=== PATIENT | male | born 1975 | race Caucasian/White ===

== ENCOUNTER 2018-01-13 07:40 | Day surgery (SDC) | payer OTHER ==
[~2018-01-13 07:40] MED LIST: ACET325 PO; ASPI81CH PO; ATOR40TA PO; Allergy25 M1; BAYER CHEWABLE81 MG PO; CLOP75 PO; DIPH50 PO; Excedrin Extra1 EACH; METO25 PO; METO25ER PO; Multiple Vitam1 EAC1; NITR.4SL SL; Prinivil10 MG; ZOLP10 PO
[2018-01-13 08:28] LABS: BASOPHILS ABSOLUTE AUTO 0.24 K/mm3 (0.00-0.23); BASOPHILS PERCENT AUTO 2 % (0-2); EOSINOPHILS ABSOLUTE AUTO 0.09 K/mm3 (0.00-0.68); EOSINOPHILS PERCENT AUTO 1 % (0-6); Hematocrit 30.3 % (37.0-53.0); Hemoglobin 9.9 g/dL (13.5-17.5); IMMATURE GRAN ABSOLUTE AUTO 0.62 K/mm3 (0.00-0.10); IMMATURE GRAN PERCENT AUTO 6 % (0-1); LYMPHOCYTES ABSOLUTE AUTO 1.93 K/mm3 (0.84-5.20); LYMPHOCYTES PERCENT AUTO 19 % (21-46); MONOCYTES ABSOLUTE AUTO 1.14 K/mm3 (0.16-1.47); MONOCYTES PERCENT AUTO 11 % (4-13); Mean Corpuscular HGB 28.5 pg (26.0-34.0); Mean Corpuscular HGB Conc 32.7 g/dL (31.5-36.5); Mean Corpuscular Volume 87 fL (80-100); Mean Platelet Volume 9.1 fL (9.1-12.4); NEUTROPHILS ABSOLUTE AUTO 6.44 K/mm3 (1.96-9.15); NEUTROPHILS PERCENT AUTO 62 % (41-73); Platelet Count 334 K/mm3 (150-400); RDW Coefficient Variation 17.7 % (11.7-14.2); RDW Standard Deviation 48.6 fL (35.1-46.3); Red Blood Cell Count 3.47 M/mm3 (4.30-5.90); White Blood Cell Count 10.46 K/mm3 (4.00-11.30)
[2018-01-13 08:47] LABS: Alanine Aminotransfer (ALT/SGP 15 U/L (12-78); Albumin, Blood 3.1 g/dL (3.4-5.0); Albumin/Globulin Ratio 0.8 (0.8-1.8); Alk Phos 67 U/L (50-136); Anion Gap 8 mmol/L (6-16); Aspartate Aminotrans (AST/SGOT 14 U/L (12-37); Bilirubin, Total 0.3 mg/dL (0.1-1.0); Blood Urea Nitrogen 23 mg/dL (8-24); Bun/Creatinine Ratio 22.3 (12.0-20.0); CO2, Blood 27 mmol/L (21-32); Chloride, Blood 107 mmol/L (98-108); Creatinine, Blood 1.03 mg/dL (0.60-1.20); Glomerular Filtration Rate >60 (60-); Glucose, Blood 98 mg/dL (70-99); Phosphorus, Blood 3.8 mg/dL (2.5-4.9); Sodium, Blood 142 mmol/L (136-145); Total Protein, Blood 7.1 g/dL (6.4-8.2)
[2018-01-13 09:37] LABS: Lactate Dehydrogenase (Ld),Bld 269 U/L (100-240)
== END 2018-01-13 07:55 | disposition home or self-care (01) ==
LOC: ATC 07:40
PROVIDERS: Internal Medicine Hematology & Oncology
DX: C83.18 Mantle cell lymphoma, lymph nodes of multiple sites (principal); D70.1 Agranulocytosis secondary to cancer chemotherapy
CPT/HCPCS: 36592; 80053; 83615; 84100; 85025

== ENCOUNTER 2018-01-16 00:23 | Day surgery (SDC) | payer OTHER ==
[2018-01-16 12:14] LABS: BASOPHILS ABSOLUTE AUTO 0.17 K/mm3 (0.00-0.23); BASOPHILS PERCENT AUTO 1 % (0-2); EOSINOPHILS ABSOLUTE AUTO 0.14 K/mm3 (0.00-0.68); EOSINOPHILS PERCENT AUTO 0 % (0-6); Hematocrit 30.2 % (37.0-53.0); Hemoglobin 9.8 g/dL (13.5-17.5); Mean Corpuscular HGB 27.9 pg (26.0-34.0); Mean Corpuscular HGB Conc 32.5 g/dL (31.5-36.5); Mean Corpuscular Volume 86 fL (80-100); Mean Platelet Volume 8.5 fL (9.1-12.4); Platelet Count 262 K/mm3 (150-400); RDW Coefficient Variation 18.6 % (11.7-14.2); RDW Standard Deviation 55.1 fL (35.1-46.3); Red Blood Cell Count 3.51 M/mm3 (4.30-5.90); White Blood Cell Count 33.11 K/mm3 (4.00-11.30)
[2018-01-16 12:19] LABS: IMMATURE GRAN ABSOLUTE AUTO 0.37 K/mm3 (0.00-0.10); IMMATURE GRAN PERCENT AUTO 1 % (0-1); LYMPHOCYTES ABSOLUTE AUTO 1.04 K/mm3 (0.84-5.20); LYMPHOCYTES PERCENT AUTO 3 % (21-46); MONOCYTES ABSOLUTE AUTO 0.53 K/mm3 (0.16-1.47); MONOCYTES PERCENT AUTO 2 % (4-13); NEUTROPHILS ABSOLUTE AUTO 30.86 K/mm3 (1.96-9.15); NEUTROPHILS PERCENT AUTO 93 % (41-73)
[2018-01-16 12:37] LABS: Alanine Aminotransfer (ALT/SGP 12 U/L (12-78); Albumin/Globulin Ratio 0.8 (0.8-1.8); Alk Phos 79 U/L (50-136); Anion Gap 5 mmol/L (6-16); Aspartate Aminotrans (AST/SGOT 9 U/L (12-37); BASOPHILS PERCENT MAN 0 % (0-2); Bilirubin, Total 0.3 mg/dL (0.1-1.0); Blood Urea Nitrogen 17 mg/dL (8-24); Bun/Creatinine Ratio 20.3 (12.0-20.0); CO2, Blood 29 mmol/L (21-32); Calcium, Blood 8.2 mg/dL (8.5-10.1); Chloride, Blood 106 mmol/L (98-108); Creatinine, Blood 0.84 mg/dL (0.60-1.20); EOSINOPHILS PERCENT MAN 0 % (0-6); Globulin, Blood 3.7 g/dL (2.2-4.0); Glomerular Filtration Rate >60 (60-); Glucose, Blood 93 mg/dL (70-99); LYMPHOCYTES ABSOLUTE MAN 0.33 K/mm3 (0.84-5.20); LYMPHOCYTES PERCENT MAN 1 % (21-46); MONOCYTES ABSOLUTE MAN 0.33 K/mm3 (0.16-1.47); MONOCYTES PERCENT MAN 1 % (4-13); Magnesium, Blood 2.4 mg/dL (1.6-2.4); NEUTROPHILS ABSOLUTE MAN 32.44 K/mm3 (1.96-9.15); Phosphorus, Blood 3.5 mg/dL (2.5-4.9); Potassium, Blood 4.2 mmol/L (3.5-5.5); SEG NEUTROPHILS PERCENT MAN 98 % (41-73); Sodium, Blood 140 mmol/L (136-145); TOTAL CELLS COUNTED 100; Total Protein, Blood 6.7 g/dL (6.4-8.2); Uric Acid, Blood 3.9 mg/dL (3.5-7.2)
[2018-01-16 12:51] LABS: Lactate Dehydrogenase (Ld),Bld 186 U/L (100-240)
== END 2018-01-16 11:48 | disposition home or self-care (01) ==
LOC: ATC 00:23
PROVIDERS: Internal Medicine Hematology & Oncology
DX: C83.18 Mantle cell lymphoma, lymph nodes of multiple sites (principal); Z45.2 Encounter for adjustment and management of vascular access device
CPT/HCPCS: 36592; 80053; 83615; 83735; 84100; 84550; 85025

== ENCOUNTER 2018-03-03 00:45 | Day surgery (SDC) | payer OTHER ==
[2018-03-03 08:39] LABS: BASOPHILS ABSOLUTE AUTO 0.07 K/mm3 (0.00-0.23); BASOPHILS PERCENT AUTO 1 % (0-2); EOSINOPHILS ABSOLUTE AUTO 0.82 K/mm3 (0.00-0.68); EOSINOPHILS PERCENT AUTO 11 % (0-6); Hematocrit 28.4 % (37.0-53.0); Hemoglobin 9.3 g/dL (13.5-17.5); IMMATURE GRAN PERCENT AUTO 7 % (0-1); LYMPHOCYTES PERCENT AUTO 22 % (21-46); MONOCYTES ABSOLUTE AUTO 1.21 K/mm3 (0.16-1.47); MONOCYTES PERCENT AUTO 17 % (4-13); Mean Corpuscular HGB 30.3 pg (26.0-34.0); Mean Corpuscular HGB Conc 32.7 g/dL (31.5-36.5); Mean Corpuscular Volume 93 fL (80-100); Mean Platelet Volume 9.3 fL (9.1-12.4); NEUTROPHILS PERCENT AUTO 42 % (41-73); NRBC ABSOLUTE 0.05 K/mm3 (0.00-0.02); NRBC Auto 0.7 /100 WBC (0.0-0.2); Platelet Count 244 K/mm3 (150-400); RDW Coefficient Variation 19.7 % (11.7-14.2); RDW Standard Deviation 57.1 fL (35.1-46.3); Red Blood Cell Count 3.07 M/mm3 (4.30-5.90)
[2018-03-03 09:00] LABS: Alanine Aminotransfer (ALT/SGP 17 U/L (12-78); Albumin, Blood 3.4 g/dL (3.4-5.0); Albumin/Globulin Ratio 1.1 (0.8-1.8); Alk Phos 85 U/L (50-136); Anion Gap 8 mmol/L (6-16); Aspartate Aminotrans (AST/SGOT 15 U/L (12-37); Bilirubin, Total 0.2 mg/dL (0.1-1.0); Blood Urea Nitrogen 17 mg/dL (8-24); Bun/Creatinine Ratio 18.8 (12.0-20.0); CO2, Blood 30 mmol/L (21-32); Calcium, Blood 8.2 mg/dL (8.5-10.1); Chloride, Blood 104 mmol/L (98-108); Glomerular Filtration Rate >60 (60-); Glucose, Blood 147 mg/dL (70-99); Magnesium, Blood 2.4 mg/dL (1.6-2.4); Sodium, Blood 142 mmol/L (136-145); Total Protein, Blood 6.4 g/dL (6.4-8.2)
== END 2018-03-03 08:10 | disposition home or self-care (01) ==
LOC: ATC 00:45
PROVIDERS: Internal Medicine Hematology & Oncology
DX: C83.18 Mantle cell lymphoma, lymph nodes of multiple sites (principal); D69.59 Other secondary thrombocytopenia; I10 Essential (primary) hypertension
CPT/HCPCS: 36592; 80053; 83615; 83735; 84100; 84550; 85025

== ENCOUNTER 2018-03-06 07:33 | Day surgery (SDC) | payer OTHER ==
[2018-03-06 15:13] LABS: BASOPHILS ABSOLUTE AUTO 0.09 K/mm3 (0.00-0.23); BASOPHILS PERCENT AUTO 0 % (0-2); EOSINOPHILS ABSOLUTE AUTO 0.03 K/mm3 (0.00-0.68); EOSINOPHILS PERCENT AUTO 0 % (0-6); Hemoglobin 9.2 g/dL (13.5-17.5); IMMATURE GRAN ABSOLUTE AUTO 0.39 K/mm3 (0.00-0.10); IMMATURE GRAN PERCENT AUTO 1 % (0-1); LYMPHOCYTES ABSOLUTE AUTO 1.04 K/mm3 (0.84-5.20); LYMPHOCYTES PERCENT AUTO 3 % (21-46); MONOCYTES ABSOLUTE AUTO 0.78 K/mm3 (0.16-1.47); MONOCYTES PERCENT AUTO 2 % (4-13); Mean Corpuscular HGB 31.6 pg (26.0-34.0); Mean Corpuscular HGB Conc 32.9 g/dL (31.5-36.5); Mean Platelet Volume 8.3 fL (9.1-12.4); NEUTROPHILS ABSOLUTE AUTO 30.82 K/mm3 (1.96-9.15); NEUTROPHILS PERCENT AUTO 93 % (41-73); Platelet Count 326 K/mm3 (150-400); RDW Coefficient Variation 21.4 % (11.7-14.2); RDW Standard Deviation 69.5 fL (35.1-46.3); Red Blood Cell Count 2.91 M/mm3 (4.30-5.90); White Blood Cell Count 33.15 K/mm3 (4.00-11.30)
[2018-03-06 15:21] LABS: Mean Corpuscular Volume 96 fL (80-100)
[2018-03-06 15:42] LABS: Alanine Aminotransfer (ALT/SGP 18 U/L (12-78); Albumin, Blood 3.1 g/dL (3.4-5.0); Albumin/Globulin Ratio 1.1 (0.8-1.8); Alk Phos 70 U/L (50-136); Anion Gap 5 mmol/L (6-16); Aspartate Aminotrans (AST/SGOT 13 U/L (12-37); Bilirubin, Total 0.3 mg/dL (0.1-1.0); Blood Urea Nitrogen 15 mg/dL (8-24); Bun/Creatinine Ratio 16.5 (12.0-20.0); CO2, Blood 29 mmol/L (21-32); Calcium, Blood 8.1 mg/dL (8.5-10.1); Chloride, Blood 109 mmol/L (98-108); Creatinine, Blood 0.91 mg/dL (0.60-1.20); Globulin, Blood 2.9 g/dL (2.2-4.0); Glomerular Filtration Rate >60 (60-); Glucose, Blood 99 mg/dL (70-99); Magnesium, Blood 2.4 mg/dL (1.6-2.4); Potassium, Blood 3.8 mmol/L (3.5-5.5); Sodium, Blood 143 mmol/L (136-145)
[2018-03-06 16:02] LABS: Lactate Dehydrogenase (Ld),Bld 223 U/L (100-240)
== END 2018-03-06 14:55 | disposition home or self-care (01) ==
LOC: ATC 07:33
PROVIDERS: Internal Medicine Hematology & Oncology
DX: C83.18 Mantle cell lymphoma, lymph nodes of multiple sites (principal); D69.59 Other secondary thrombocytopenia
CPT/HCPCS: 36592; 80053; 83615; 83735; 84100; 84550; 85025; 99211

== ENCOUNTER 2018-03-08 10:38 | Day surgery (SDC) | payer OTHER ==
[2018-03-08] MEDS ORDERED: GRANIX300 MCG/0. SC (11:25)
== END 2018-03-08 10:48 | disposition home or self-care (01) ==
LOC: ATC 10:38
DX: D70.1 Agranulocytosis secondary to cancer chemotherapy (principal); C83.18 Mantle cell lymphoma, lymph nodes of multiple sites
CPT/HCPCS: 96372; J1447

== ENCOUNTER 2018-03-09 09:27 | Day surgery (SDC) | payer OTHER ==
[~2018-03-09 09:27] MED LIST changes: +GRANIX300 MCG/0. SC
== END 2018-03-09 09:48 | disposition home or self-care (01) ==
LOC: ATC 09:27
DX: D70.1 Agranulocytosis secondary to cancer chemotherapy (principal); C83.18 Mantle cell lymphoma, lymph nodes of multiple sites
CPT/HCPCS: 96372; J1447

== ENCOUNTER 2018-03-10 00:04 | Day surgery (SDC) | payer OTHER ==
[2018-03-10 16:04] LABS: Hematocrit 27.1 % (37.0-53.0); Hemoglobin 8.9 g/dL (13.5-17.5); Mean Corpuscular HGB 31.1 pg (26.0-34.0); Mean Corpuscular HGB Conc 32.8 g/dL (31.5-36.5); Mean Corpuscular Volume 95 fL (80-100); Mean Platelet Volume 8.8 fL (9.1-12.4); Platelet Count 169 K/mm3 (150-400); RDW Coefficient Variation 18.6 % (11.7-14.2); RDW Standard Deviation 63.7 fL (35.1-46.3); Red Blood Cell Count 2.86 M/mm3 (4.30-5.90)
[2018-03-10 16:18] LABS: Alanine Aminotransfer (ALT/SGP 15 U/L (12-78); Albumin, Blood 3.4 g/dL (3.4-5.0); Albumin/Globulin Ratio 1.2 (0.8-1.8); Alk Phos 96 U/L (50-136); Anion Gap 7 mmol/L (6-16); Aspartate Aminotrans (AST/SGOT 11 U/L (12-37); Bilirubin, Total 0.3 mg/dL (0.1-1.0); Blood Urea Nitrogen 20 mg/dL (8-24); Bun/Creatinine Ratio 25.7 (12.0-20.0); CO2, Blood 28 mmol/L (21-32); Calcium, Blood 8.4 mg/dL (8.5-10.1); Chloride, Blood 105 mmol/L (98-108); Creatinine, Blood 0.78 mg/dL (0.60-1.20); Globulin, Blood 2.9 g/dL (2.2-4.0); Glomerular Filtration Rate >60 (60-); Glucose, Blood 110 mg/dL (70-99); Magnesium, Blood 2.2 mg/dL (1.6-2.4); Phosphorus, Blood 2.9 mg/dL (2.5-4.9); Potassium, Blood 4.1 mmol/L (3.5-5.5); Sodium, Blood 140 mmol/L (136-145); Total Protein, Blood 6.3 g/dL (6.4-8.2); Uric Acid, Blood 4.9 mg/dL (3.5-7.2)
[2018-03-10 16:36] LABS: Lactate Dehydrogenase (Ld),Bld 211 U/L (100-240)
[2018-03-10 19:02] LABS: BAND PERCENT MAN 1 % (0-8); BASOPHILS PERCENT MAN 2 % (0-2); EOSINOPHILS PERCENT MAN 2 % (0-6); LYMPHOCYTES ABSOLUTE MAN 0.67 K/mm3 (0.84-5.20); LYMPHOCYTES PERCENT MAN 13 % (21-46); MONOCYTES PERCENT MAN 0 % (4-13); NEUTROPHILS ABSOLUTE MAN 4.31 K/mm3 (1.96-9.15); SEG NEUTROPHILS PERCENT MAN 82 % (41-73); TOTAL CELLS COUNTED 100
== END 2018-03-10 15:46 | disposition home or self-care (01) ==
LOC: ATC 00:04
PROVIDERS: Internal Medicine Hematology & Oncology
DX: C83.18 Mantle cell lymphoma, lymph nodes of multiple sites (principal); D70.1 Agranulocytosis secondary to cancer chemotherapy; I10 Essential (primary) hypertension
CPT/HCPCS: 80053; 83615; 83735; 84100; 84550; 85025; 96372; J1447

== ENCOUNTER 2018-03-13 00:05 | Day surgery (SDC) | payer OTHER ==
[2018-03-13 14:31] LABS: Hematocrit 22.5 % (37.0-53.0); Hemoglobin 7.6 g/dL (13.5-17.5); Mean Corpuscular HGB 31.4 pg (26.0-34.0); Mean Corpuscular HGB Conc 33.8 g/dL (31.5-36.5); Mean Corpuscular Volume 93 fL (80-100); Mean Platelet Volume 9.8 fL (9.1-12.4); Platelet Count 52 K/mm3 (150-400); RDW Coefficient Variation 17.2 % (11.7-14.2); RDW Standard Deviation 59.2 fL (35.1-46.3); Red Blood Cell Count 2.42 M/mm3 (4.30-5.90)
[2018-03-13 14:38] LABS: Alanine Aminotransfer (ALT/SGP 16 U/L (12-78); Albumin, Blood 3.2 g/dL (3.4-5.0); Albumin/Globulin Ratio 1.1 (0.8-1.8); Alk Phos 75 U/L (50-136); Anion Gap 6 mmol/L (6-16); Aspartate Aminotrans (AST/SGOT 6 U/L (12-37); Bilirubin, Total 0.2 mg/dL (0.1-1.0); Blood Urea Nitrogen 18 mg/dL (8-24); Bun/Creatinine Ratio 20.8 (12.0-20.0); CO2, Blood 27 mmol/L (21-32); Calcium, Blood 8.4 mg/dL (8.5-10.1); Chloride, Blood 107 mmol/L (98-108); Creatinine, Blood 0.87 mg/dL (0.60-1.20); Globulin, Blood 2.9 g/dL (2.2-4.0); Glomerular Filtration Rate >60 (60-); Glucose, Blood 101 mg/dL (70-99); Magnesium, Blood 1.6 mg/dL (1.6-2.4); Phosphorus, Blood 3.4 mg/dL (2.5-4.9); Potassium, Blood 3.6 mmol/L (3.5-5.5); Sodium, Blood 140 mmol/L (136-145); Total Protein, Blood 6.1 g/dL (6.4-8.2); Uric Acid, Blood 3.6 mg/dL (3.5-7.2)
[2018-03-13 14:40] LABS: BASOPHILS ABSOLUTE AUTO 0.02 K/mm3 (0.00-0.23); BASOPHILS PERCENT AUTO 3 % (0-2); EOSINOPHILS ABSOLUTE AUTO 0.09 K/mm3 (0.00-0.68); EOSINOPHILS PERCENT AUTO 11 % (0-6); IMMATURE GRAN ABSOLUTE AUTO 0.01 K/mm3 (0.00-0.10); IMMATURE GRAN PERCENT AUTO 1 % (0-1); LYMPHOCYTES ABSOLUTE AUTO 0.47 K/mm3 (0.84-5.20); LYMPHOCYTES PERCENT AUTO 60 % (21-46); MONOCYTES ABSOLUTE AUTO 0.09 K/mm3 (0.16-1.47); MONOCYTES PERCENT AUTO 11 % (4-13); NEUTROPHILS ABSOLUTE AUTO 0.11 K/mm3 (1.96-9.15); NEUTROPHILS PERCENT AUTO 14 % (41-73)
[2018-03-13 14:42] LABS: Lactate Dehydrogenase (Ld),Bld 115 U/L (100-240)
[2018-03-13 14:54] LABS: White Blood Cell Count 0.79 K/mm3 (4.00-11.30)
== END 2018-03-13 14:12 | disposition home or self-care (01) ==
LOC: ATC 00:05
PROVIDERS: Internal Medicine Hematology & Oncology
DX: C83.18 Mantle cell lymphoma, lymph nodes of multiple sites (principal); D69.59 Other secondary thrombocytopenia
CPT/HCPCS: 36592; 80053; 83615; 83735; 84100; 84550; 85025

== ENCOUNTER 2018-03-15 14:14 | Day surgery (SDC) | payer OTHER | END 2018-03-15 14:21 | disposition home or self-care (01) | LOC: ATC 14:14 | DX: D70.1 Agranulocytosis secondary to cancer chemotherapy (principal); C83.18 Mantle cell lymphoma, lymph nodes of multiple sites | CPT/HCPCS: 96372; J1447 ==

== ENCOUNTER 2018-03-16 11:43 | Day surgery (SDC) | payer OTHER ==
[2018-03-17] MEDS ORDERED: [UNRECOGNIZED DRUG - CODE] (10:10)
[2018-03-17] MEDS ORDERED: ATOR40TA PO (10:11)
[2018-03-17] MEDS ORDERED: HYDHCL25 PO (10:12)
[2018-03-17] MEDS ORDERED: SULFAMETHOXAZO PO (10:12)
[2018-03-17] MEDS ORDERED: LEVFLO500 PO (10:13)
[2018-03-17] MEDS ORDERED: PROC5 PO (10:13)
[2018-03-17] MEDS ORDERED: ONDA8 PO (10:14)
[2018-03-17] MEDS ORDERED: ZOLP10 PO (10:14)
[2018-03-17] MEDS ORDERED: ACYC800 PO (10:14)
== END 2018-03-16 12:18 | disposition home or self-care (01) ==
LOC: ATC 11:43
DX: D70.1 Agranulocytosis secondary to cancer chemotherapy (principal); C83.18 Mantle cell lymphoma, lymph nodes of multiple sites
CPT/HCPCS: 96372; J1447

== ENCOUNTER 2018-03-17 00:09 | Day surgery (SDC) | payer OTHER ==
[2018-03-17 10:06] LABS: Hematocrit 24.2 % (37.0-53.0); Hemoglobin 8.1 g/dL (13.5-17.5); Mean Corpuscular HGB 31.2 pg (26.0-34.0); Mean Corpuscular HGB Conc 33.5 g/dL (31.5-36.5); Mean Corpuscular Volume 93 fL (80-100); Mean Platelet Volume 10.4 fL (9.1-12.4); NRBC ABSOLUTE 0.67 K/mm3 (0.00-0.02); NRBC Auto 1.8 /100 WBC (0.0-0.2); RDW Coefficient Variation 18.2 % (11.7-14.2); RDW Standard Deviation 58.4 fL (35.1-46.3); White Blood Cell Count 37.52 K/mm3 (4.00-11.30)
[2018-03-17] MEDS ORDERED: [UNRECOGNIZED DRUG - CODE] (10:10)
[2018-03-17] MEDS ORDERED: ATOR40TA PO (10:11)
[2018-03-17 10:12] LABS: Platelet Count 36 K/mm3 (150-400)
[2018-03-17] MEDS ORDERED: HYDHCL25 PO (10:12)
[2018-03-17] MEDS ORDERED: SULFAMETHOXAZO PO (10:12)
[2018-03-17] MEDS ORDERED: PROC5 PO (10:13)
[2018-03-17] MEDS ORDERED: LEVFLO500 PO (10:13)
[2018-03-17] MEDS ORDERED: ACYC800 PO (10:14)
[2018-03-17] MEDS ORDERED: ONDA8 PO (10:14)
[2018-03-17] MEDS ORDERED: ZOLP10 PO (10:14)
[2018-03-17 10:22] LABS: Alanine Aminotransfer (ALT/SGP 18 U/L (12-78); Albumin, Blood 3.5 g/dL (3.4-5.0); Albumin/Globulin Ratio 1.3 (0.8-1.8); Alk Phos 117 U/L (50-136); Anion Gap 6 mmol/L (6-16); Aspartate Aminotrans (AST/SGOT 22 U/L (12-37); Bilirubin, Total 0.2 mg/dL (0.1-1.0); Blood Urea Nitrogen 9 mg/dL (8-24); Bun/Creatinine Ratio 8.5 (12.0-20.0); CO2, Blood 29 mmol/L (21-32); Calcium, Blood 8.5 mg/dL (8.5-10.1); Chloride, Blood 107 mmol/L (98-108); Creatinine, Blood 1.06 mg/dL (0.60-1.20); Globulin, Blood 2.7 g/dL (2.2-4.0); Glomerular Filtration Rate >60 (60-); Glucose, Blood 125 mg/dL (70-99); Magnesium, Blood 1.7 mg/dL (1.6-2.4); Phosphorus, Blood 2.8 mg/dL (2.5-4.9); Potassium, Blood 4.1 mmol/L (3.5-5.5); Sodium, Blood 142 mmol/L (136-145); Total Protein, Blood 6.2 g/dL (6.4-8.2); Uric Acid, Blood 7.7 mg/dL (3.5-7.2)
[2018-03-17 10:23] LABS: Lactate Dehydrogenase (Ld),Bld 556 U/L (100-240)
[2018-03-17 10:38] LABS: BAND PERCENT MAN 11 % (0-8); BASOPHILS ABSOLUTE MAN 0.37 K/mm3 (0.00-0.23); BASOPHILS PERCENT MAN 1 % (0-2); EOSINOPHILS PERCENT MAN 0 % (0-6); LYMPHOCYTES ABSOLUTE MAN 1.87 K/mm3 (0.84-5.20); LYMPHOCYTES PERCENT MAN 5 % (21-46); METAMYELOCYTE ABSOLUTE MAN 1.87 K/mm3 (0.00-0.00); METAMYELOCYTE PERCENT MAN 5 % (0-0); MONOCYTES PERCENT MAN 12 % (4-13); MYELOCYTE PERCENT MAN 4 % (0-0); NEUTROPHILS ABSOLUTE MAN 27.38 K/mm3 (1.96-9.15); SEG NEUTROPHILS PERCENT MAN 62 % (41-73); TOTAL CELLS COUNTED 100
== END 2018-03-17 09:58 | disposition home or self-care (01) ==
LOC: ATC 00:09
PROVIDERS: Internal Medicine Hematology & Oncology
DX: C83.18 Mantle cell lymphoma, lymph nodes of multiple sites (principal); I10 Essential (primary) hypertension
CPT/HCPCS: 36592; 80053; 83615; 83735; 84100; 84550; 85025

== ENCOUNTER 2018-03-19 00:11 | Day surgery (SDC) | payer OTHER ==
[~2018-03-19 00:11] MED LIST changes: +ACYC800 PO; +HYDHCL25 PO; +LEVFLO500 PO; +ONDA8 PO; +PROC5 PO; +SULFAMETHOXAZO PO; +[UNRECOGNIZED DRUG - CODE]
[2018-03-19 09:27] LABS: Hematocrit 25.4 % (37.0-53.0); Hemoglobin 8.3 g/dL (13.5-17.5); Mean Corpuscular HGB 31.3 pg (26.0-34.0); Mean Corpuscular HGB Conc 32.7 g/dL (31.5-36.5); Mean Platelet Volume 10.5 fL (9.1-12.4); NRBC ABSOLUTE 0.14 K/mm3 (0.00-0.02); NRBC Auto 0.6 /100 WBC (0.0-0.2); RDW Coefficient Variation 19.1 % (11.7-14.2); RDW Standard Deviation 61.8 fL (35.1-46.3); Red Blood Cell Count 2.65 M/mm3 (4.30-5.90); White Blood Cell Count 25.44 K/mm3 (4.00-11.30)
[2018-03-19 09:40] LABS: Mean Corpuscular Volume 96 fL (80-100); Platelet Count 48 K/mm3 (150-400)
[2018-03-19 09:45] LABS: Alanine Aminotransfer (ALT/SGP 18 U/L (12-78); Albumin, Blood 3.6 g/dL (3.4-5.0); Albumin/Globulin Ratio 1.3 (0.8-1.8); Alk Phos 115 U/L (50-136); Anion Gap 5 mmol/L (6-16); Aspartate Aminotrans (AST/SGOT 16 U/L (12-37); Bilirubin, Total 0.2 mg/dL (0.1-1.0); Blood Urea Nitrogen 13 mg/dL (8-24); Bun/Creatinine Ratio 13.2 (12.0-20.0); CO2, Blood 29 mmol/L (21-32); Calcium, Blood 8.3 mg/dL (8.5-10.1); Chloride, Blood 107 mmol/L (98-108); Creatinine, Blood 0.99 mg/dL (0.60-1.20); Globulin, Blood 2.8 g/dL (2.2-4.0); Glomerular Filtration Rate >60 (60-); Glucose, Blood 137 mg/dL (70-99); Magnesium, Blood 2.2 mg/dL (1.6-2.4); Potassium, Blood 4.3 mmol/L (3.5-5.5); Sodium, Blood 141 mmol/L (136-145); Total Protein, Blood 6.4 g/dL (6.4-8.2); Uric Acid, Blood 6.6 mg/dL (3.5-7.2)
[2018-03-19 09:49] LABS: Lactate Dehydrogenase (Ld),Bld 460 U/L (100-240)
[2018-03-19 10:48] LABS: BAND PERCENT MAN 11 % (0-8); BASOPHILS ABSOLUTE MAN 0.25 K/mm3 (0.00-0.23); BASOPHILS PERCENT MAN 1 % (0-2); EOSINOPHILS PERCENT MAN 0 % (0-6); LYMPHOCYTES PERCENT MAN 13 % (21-46); METAMYELOCYTE ABSOLUTE MAN 0.76 K/mm3 (0.00-0.00); METAMYELOCYTE PERCENT MAN 3 % (0-0); MONOCYTES ABSOLUTE MAN 2.03 K/mm3 (0.16-1.47); MONOCYTES PERCENT MAN 8 % (4-13); MYELOCYTE ABSOLUTE MAN 1.27 K/mm3 (0.00-0.00); MYELOCYTE PERCENT MAN 5 % (0-0); NEUTROPHILS ABSOLUTE MAN 17.55 K/mm3 (1.96-9.15); PROMYELOCYTE ABSOLUTE MAN 0.25 K/mm3 (0.00-0.00); PROMYELOCYTE PERCENT MAN 1 % (0-0); SEG NEUTROPHILS PERCENT MAN 58 % (41-73); TOTAL CELLS COUNTED 100
== END 2018-03-19 09:18 | disposition home or self-care (01) ==
LOC: ATC 00:11
PROVIDERS: Internal Medicine Hematology & Oncology
DX: C83.18 Mantle cell lymphoma, lymph nodes of multiple sites (principal)
CPT/HCPCS: 36592; 80053; 83615; 83735; 84100; 84550; 85025

== ENCOUNTER 2018-03-27 00:14 | Day surgery (SDC) | payer OTHER ==
[2018-03-27 12:35] LABS: BASOPHILS ABSOLUTE AUTO 0.02 K/mm3 (0.00-0.23); BASOPHILS PERCENT AUTO 1 % (0-2); EOSINOPHILS ABSOLUTE AUTO 0.01 K/mm3 (0.00-0.68); EOSINOPHILS PERCENT AUTO 0 % (0-6); Hemoglobin 7.8 g/dL (13.5-17.5); IMMATURE GRAN ABSOLUTE AUTO 0.01 K/mm3 (0.00-0.10); IMMATURE GRAN PERCENT AUTO 0 % (0-1); LYMPHOCYTES ABSOLUTE AUTO 0.13 K/mm3 (0.84-5.20); LYMPHOCYTES PERCENT AUTO 5 % (21-46); MONOCYTES ABSOLUTE AUTO 0.09 K/mm3 (0.16-1.47); MONOCYTES PERCENT AUTO 4 % (4-13); Mean Corpuscular HGB 33.1 pg (26.0-34.0); Mean Corpuscular HGB Conc 33.9 g/dL (31.5-36.5); Mean Corpuscular Volume 98 fL (80-100); Mean Platelet Volume 9.1 fL (9.1-12.4); NEUTROPHILS ABSOLUTE AUTO 2.26 K/mm3 (1.96-9.15); NEUTROPHILS PERCENT AUTO 90 % (41-73); Platelet Count 141 K/mm3 (150-400); RDW Coefficient Variation 19.6 % (11.7-14.2); RDW Standard Deviation 68.4 fL (35.1-46.3); Red Blood Cell Count 2.36 M/mm3 (4.30-5.90); White Blood Cell Count 2.52 K/mm3 (4.00-11.30)
[2018-03-27 12:52] LABS: Alanine Aminotransfer (ALT/SGP 17 U/L (12-78); Albumin, Blood 3.2 g/dL (3.4-5.0); Albumin/Globulin Ratio 1.2 (0.8-1.8); Alk Phos 55 U/L (50-136); Anion Gap 4 mmol/L (6-16); Aspartate Aminotrans (AST/SGOT 12 U/L (12-37); Bilirubin, Total 0.6 mg/dL (0.1-1.0); Blood Urea Nitrogen 13 mg/dL (8-24); Bun/Creatinine Ratio 15.2 (12.0-20.0); CO2, Blood 30 mmol/L (21-32); Chloride, Blood 108 mmol/L (98-108); Creatinine, Blood 0.85 mg/dL (0.60-1.20); Globulin, Blood 2.7 g/dL (2.2-4.0); Glomerular Filtration Rate >60 (60-); Glucose, Blood 88 mg/dL (70-99); Magnesium, Blood 2.4 mg/dL (1.6-2.4); Phosphorus, Blood 4.1 mg/dL (2.5-4.9); Potassium, Blood 3.7 mmol/L (3.5-5.5); Sodium, Blood 142 mmol/L (136-145); Total Protein, Blood 5.9 g/dL (6.4-8.2); Uric Acid, Blood 5.6 mg/dL (3.5-7.2)
[2018-03-27 12:54] LABS: Lactate Dehydrogenase (Ld),Bld 194 U/L (100-240)
== END 2018-03-27 12:14 | disposition home or self-care (01) ==
LOC: ATC 00:14
PROVIDERS: Internal Medicine Hematology & Oncology
DX: C83.18 Mantle cell lymphoma, lymph nodes of multiple sites (principal); D69.59 Other secondary thrombocytopenia
CPT/HCPCS: 36592; 80053; 83615; 83735; 84100; 84550; 85025

== ENCOUNTER 2018-03-29 14:01 | Day surgery (SDC) | payer OTHER | END 2018-03-29 14:09 | disposition home or self-care (01) | LOC: ATC 14:01 | DX: C83.18 Mantle cell lymphoma, lymph nodes of multiple sites (principal); D70.1 Agranulocytosis secondary to cancer chemotherapy | CPT/HCPCS: 96372; J1447 ==

== ENCOUNTER 2018-03-30 10:05 | Day surgery (SDC) | payer OTHER | END 2018-03-30 10:13 | disposition home or self-care (01) | LOC: ATC 10:05 | DX: D70.1 Agranulocytosis secondary to cancer chemotherapy (principal); C83.18 Mantle cell lymphoma, lymph nodes of multiple sites | CPT/HCPCS: 96372; J1447 ==

== ENCOUNTER 2018-03-31 09:41 | Day surgery (SDC) | payer OTHER ==
[2018-03-31 12:05] LABS: Hematocrit 21.5 % (37.0-53.0); Hemoglobin 7.1 g/dL (13.5-17.5); Mean Corpuscular HGB 32.4 pg (26.0-34.0); Mean Corpuscular Volume 98 fL (80-100); Mean Platelet Volume 8.5 fL (9.1-12.4); Platelet Count 54 K/mm3 (150-400); RDW Coefficient Variation 17.7 % (11.7-14.2); Red Blood Cell Count 2.19 M/mm3 (4.30-5.90); White Blood Cell Count 7.48 K/mm3 (4.00-11.30)
[2018-03-31 12:23] LABS: Alanine Aminotransfer (ALT/SGP 11 U/L (12-78); Albumin, Blood 3.5 g/dL (3.4-5.0); Albumin/Globulin Ratio 1.3 (0.8-1.8); Alk Phos 84 U/L (50-136); Anion Gap 4 mmol/L (6-16); Aspartate Aminotrans (AST/SGOT 4 U/L (12-37); Bilirubin, Total 0.3 mg/dL (0.1-1.0); Blood Urea Nitrogen 20 mg/dL (8-24); Bun/Creatinine Ratio 27.6 (12.0-20.0); CO2, Blood 30 mmol/L (21-32); Calcium, Blood 8.2 mg/dL (8.5-10.1); Chloride, Blood 107 mmol/L (98-108); Creatinine, Blood 0.72 mg/dL (0.60-1.20); Globulin, Blood 2.7 g/dL (2.2-4.0); Glomerular Filtration Rate >60 (60-); Glucose, Blood 100 mg/dL (70-99); Magnesium, Blood 2.4 mg/dL (1.6-2.4); Potassium, Blood 4.3 mmol/L (3.5-5.5); Sodium, Blood 141 mmol/L (136-145); Total Protein, Blood 6.2 g/dL (6.4-8.2); Uric Acid, Blood 3.5 mg/dL (3.5-7.2)
[2018-03-31 12:28] LABS: BASOPHILS PERCENT MAN 0 % (0-2); EOSINOPHILS PERCENT MAN 0 % (0-6); LYMPHOCYTES ABSOLUTE MAN 0.44 K/mm3 (0.84-5.20); LYMPHOCYTES PERCENT MAN 6 % (21-46); Lactate Dehydrogenase (Ld),Bld 137 U/L (100-240); MONOCYTES PERCENT MAN 0 % (4-13); NEUTROPHILS ABSOLUTE MAN 7.03 K/mm3 (1.96-9.15); SEG NEUTROPHILS PERCENT MAN 94 % (41-73); TOTAL CELLS COUNTED 100
== END 2018-03-31 23:07 | disposition home or self-care (01) ==
LOC: ATC 09:41
PROVIDERS: Internal Medicine Hematology & Oncology
DX: C83.18 Mantle cell lymphoma, lymph nodes of multiple sites (principal); D70.1 Agranulocytosis secondary to cancer chemotherapy
CPT/HCPCS: 36592; 80053; 83615; 83735; 84100; 84550; 85025

== ENCOUNTER 2018-04-04 00:58 | Day surgery (SDC) | payer OTHER ==
[2018-04-03 11:55] LABS: BASOPHILS ABSOLUTE AUTO 0.01 K/mm3 (0.00-0.23); BASOPHILS PERCENT AUTO 1 % (0-2); Hemoglobin 6.1 g/dL (13.5-17.5); LYMPHOCYTES ABSOLUTE AUTO 0.46 K/mm3 (0.84-5.20); LYMPHOCYTES PERCENT AUTO 22 % (21-46); MONOCYTES ABSOLUTE AUTO 0.24 K/mm3 (0.16-1.47); MONOCYTES PERCENT AUTO 11 % (4-13); Mean Corpuscular HGB Conc 34.1 g/dL (31.5-36.5); Mean Corpuscular Volume 97 fL (80-100); RDW Coefficient Variation 16.5 % (11.7-14.2); RDW Standard Deviation 57.9 fL (35.1-46.3); Red Blood Cell Count 1.85 M/mm3 (4.30-5.90)
[2018-04-03 12:06] LABS: Magnesium, Blood 2.2 mg/dL (1.6-2.4); Uric Acid, Blood 3.8 mg/dL (3.5-7.2)
[2018-04-03 12:07] LABS: Alanine Aminotransfer (ALT/SGP 12 U/L (12-78); Albumin, Blood 3.5 g/dL (3.4-5.0); Albumin/Globulin Ratio 1.3 (0.8-1.8); Alk Phos 77 U/L (50-136); Anion Gap 5 mmol/L (6-16); Aspartate Aminotrans (AST/SGOT 6 U/L (12-37); Bilirubin, Total 0.3 mg/dL (0.1-1.0); Blood Urea Nitrogen 17 mg/dL (8-24); Bun/Creatinine Ratio 18.5 (12.0-20.0); CO2, Blood 29 mmol/L (21-32); Chloride, Blood 107 mmol/L (98-108); Creatinine, Blood 0.92 mg/dL (0.60-1.20); EOSINOPHILS ABSOLUTE AUTO 0.35 K/mm3 (0.00-0.68); EOSINOPHILS PERCENT AUTO 17 % (0-6); Globulin, Blood 2.7 g/dL (2.2-4.0); Glomerular Filtration Rate >60 (60-); Glucose, Blood 90 mg/dL (70-99); IMMATURE GRAN ABSOLUTE AUTO 0.02 K/mm3 (0.00-0.10); IMMATURE GRAN PERCENT AUTO 1 % (0-1); NEUTROPHILS ABSOLUTE AUTO 1.02 K/mm3 (1.96-9.15); NEUTROPHILS PERCENT AUTO 49 % (41-73); Phosphorus, Blood 3.6 mg/dL (2.5-4.9); Platelet Count 6 K/mm3 (150-400); Sodium, Blood 141 mmol/L (136-145); Total Protein, Blood 6.2 g/dL (6.4-8.2)
[2018-04-03 12:09] LABS: Lactate Dehydrogenase (Ld),Bld 115 U/L (100-240)
[2018-04-03 12:10] LABS: Hematocrit 17.9 % (37.0-53.0)
== END 2018-04-04 12:42 | disposition home or self-care (01) ==
LOC: ATC 00:58
PROVIDERS: Internal Medicine Hematology & Oncology
DX: C83.18 Mantle cell lymphoma, lymph nodes of multiple sites (principal); D64.9 Anemia, unspecified
CPT/HCPCS: 36430; 36592; 80053; 83615; 83735; 84100; 84550; 85025; 86850; 86900; 86901; 86923; 96372; J1447; J7050; P9037; P9040

== ENCOUNTER 2018-04-05 09:05 | Day surgery (SDC) | payer OTHER | END 2018-04-05 23:07 | disposition home or self-care (01) | LOC: ATC 09:05 | DX: C83.18 Mantle cell lymphoma, lymph nodes of multiple sites (principal); D70.1 Agranulocytosis secondary to cancer chemotherapy | CPT/HCPCS: 96372; J1447 ==

== ENCOUNTER 2018-04-06 11:47 | Day surgery (SDC) | payer OTHER | END 2018-04-06 22:43 | disposition home or self-care (01) | LOC: ATC 11:47 | DX: C83.18 Mantle cell lymphoma, lymph nodes of multiple sites (principal); D70.1 Agranulocytosis secondary to cancer chemotherapy | CPT/HCPCS: 96372; J1447 ==

== ENCOUNTER 2018-04-07 00:11 | Day surgery (SDC) | payer OTHER ==
[2018-04-07 15:11] LABS: Hematocrit 26.8 % (37.0-53.0); Hemoglobin 9.2 g/dL (13.5-17.5); LYMPHOCYTES ABSOLUTE AUTO 1.21 K/mm3 (0.84-5.20); LYMPHOCYTES PERCENT AUTO 4 % (21-46); MONOCYTES ABSOLUTE AUTO 3.09 K/mm3 (0.16-1.47); MONOCYTES PERCENT AUTO 11 % (4-13); Mean Corpuscular HGB 32.2 pg (26.0-34.0); Mean Corpuscular HGB Conc 34.3 g/dL (31.5-36.5); Mean Platelet Volume 9.5 fL (9.1-12.4); NRBC ABSOLUTE 0.19 K/mm3 (0.00-0.02); NRBC Auto 0.7 /100 WBC (0.0-0.2); RDW Coefficient Variation 16.5 % (11.7-14.2); RDW Standard Deviation 54.7 fL (35.1-46.3); Red Blood Cell Count 2.86 M/mm3 (4.30-5.90); White Blood Cell Count 27.27 K/mm3 (4.00-11.30)
[2018-04-07 15:12] LABS: BASOPHILS ABSOLUTE AUTO 0.02 K/mm3 (0.00-0.23); BASOPHILS PERCENT AUTO 0 % (0-2); EOSINOPHILS ABSOLUTE AUTO 2.29 K/mm3 (0.00-0.68); EOSINOPHILS PERCENT AUTO 8 % (0-6); IMMATURE GRAN ABSOLUTE AUTO 3.75 K/mm3 (0.00-0.10); IMMATURE GRAN PERCENT AUTO 14 % (0-1); Mean Corpuscular Volume 94 fL (80-100); NEUTROPHILS ABSOLUTE AUTO 16.91 K/mm3 (1.96-9.15); NEUTROPHILS PERCENT AUTO 62 % (41-73)
[2018-04-07 15:15] LABS: Platelet Count 30 K/mm3 (150-400)
[2018-04-07 16:19] LABS: Alanine Aminotransfer (ALT/SGP 18 U/L (12-78); Albumin, Blood 3.9 g/dL (3.4-5.0); Albumin/Globulin Ratio 1.3 (0.8-1.8); Alk Phos 125 U/L (50-136); Anion Gap 8 mmol/L (6-16); Aspartate Aminotrans (AST/SGOT 16 U/L (12-37); Bilirubin, Total 0.2 mg/dL (0.1-1.0); Blood Urea Nitrogen 10 mg/dL (8-24); CO2, Blood 28 mmol/L (21-32); Calcium, Blood 8.7 mg/dL (8.5-10.1); Chloride, Blood 105 mmol/L (98-108); Globulin, Blood 2.9 g/dL (2.2-4.0); Glucose, Blood 112 mg/dL (70-99); Phosphorus, Blood 3.8 mg/dL (2.5-4.9); Potassium, Blood 4.3 mmol/L (3.5-5.5); Sodium, Blood 141 mmol/L (136-145); Total Protein, Blood 6.8 g/dL (6.4-8.2); Uric Acid, Blood 6.4 mg/dL (3.5-7.2)
[2018-04-07 16:21] LABS: Bun/Creatinine Ratio 9.3 (12.0-20.0); Creatinine, Blood 1.08 mg/dL (0.60-1.20); Glomerular Filtration Rate >60 (60-)
[2018-04-07 16:51] LABS: Magnesium, Blood 2.4 mg/dL (1.6-2.4)
[2018-04-07 16:58] LABS: Lactate Dehydrogenase (Ld),Bld 370 U/L (100-240)
== END 2018-04-07 14:50 | disposition home or self-care (01) ==
LOC: ATC 00:11
PROVIDERS: Internal Medicine Hematology & Oncology
DX: C83.18 Mantle cell lymphoma, lymph nodes of multiple sites (principal); D70.1 Agranulocytosis secondary to cancer chemotherapy
CPT/HCPCS: 36592; 80053; 83615; 83735; 84100; 84550; 85025

== ENCOUNTER 2018-04-10 00:08 | Day surgery (SDC) | payer OTHER ==
[2018-04-10 16:15] LABS: Hematocrit 28.4 % (37.0-53.0); Hemoglobin 9.7 g/dL (13.5-17.5); Mean Corpuscular HGB 32.4 pg (26.0-34.0); Mean Corpuscular HGB Conc 34.2 g/dL (31.5-36.5); Mean Corpuscular Volume 95 fL (80-100); Platelet Count 78 K/mm3 (150-400); RDW Coefficient Variation 18.8 % (11.7-14.2); RDW Standard Deviation 53.8 fL (35.1-46.3); Red Blood Cell Count 2.99 M/mm3 (4.30-5.90); White Blood Cell Count 7.69 K/mm3 (4.00-11.30)
[2018-04-10 16:23] LABS: Alanine Aminotransfer (ALT/SGP 19 U/L (12-78); Albumin, Blood 3.9 g/dL (3.4-5.0); Albumin/Globulin Ratio 1.3 (0.8-1.8); Alk Phos 101 U/L (50-136); Anion Gap 7 mmol/L (6-16); Aspartate Aminotrans (AST/SGOT 12 U/L (12-37); Bilirubin, Total 0.3 mg/dL (0.1-1.0); Blood Urea Nitrogen 15 mg/dL (8-24); Bun/Creatinine Ratio 15.5 (12.0-20.0); CO2, Blood 28 mmol/L (21-32); Calcium, Blood 8.6 mg/dL (8.5-10.1); Chloride, Blood 105 mmol/L (98-108); Creatinine, Blood 0.97 mg/dL (0.60-1.20); Globulin, Blood 2.9 g/dL (2.2-4.0); Glomerular Filtration Rate >60 (60-); Glucose, Blood 104 mg/dL (70-99); Magnesium, Blood 2.2 mg/dL (1.6-2.4); Phosphorus, Blood 3.6 mg/dL (2.5-4.9); Potassium, Blood 4.2 mmol/L (3.5-5.5); Sodium, Blood 140 mmol/L (136-145); Total Protein, Blood 6.8 g/dL (6.4-8.2); Uric Acid, Blood 5.6 mg/dL (3.5-7.2)
[2018-04-10 16:29] LABS: Lactate Dehydrogenase (Ld),Bld 255 U/L (100-240)
[2018-04-10 16:51] LABS: BAND PERCENT MAN 6 % (0-8); BASOPHILS PERCENT MAN 0 % (0-2); EOSINOPHILS ABSOLUTE MAN 0.69 K/mm3 (0.00-0.68); EOSINOPHILS PERCENT MAN 9 % (0-6); LYMPHOCYTES PERCENT MAN 17 % (21-46); METAMYELOCYTE ABSOLUTE MAN 0.07 K/mm3 (0.00-0.00); METAMYELOCYTE PERCENT MAN 1 % (0-0); MONOCYTES ABSOLUTE MAN 0.69 K/mm3 (0.16-1.47); MONOCYTES PERCENT MAN 9 % (4-13); MYELOCYTE ABSOLUTE MAN 0.15 K/mm3 (0.00-0.00); MYELOCYTE PERCENT MAN 2 % (0-0); NEUTROPHILS ABSOLUTE MAN 4.76 K/mm3 (1.96-9.15); SEG NEUTROPHILS PERCENT MAN 56 % (41-73); TOTAL CELLS COUNTED 100
== END 2018-04-10 15:54 | disposition home or self-care (01) ==
LOC: ATC 00:08
PROVIDERS: Internal Medicine Hematology & Oncology
DX: D70.1 Agranulocytosis secondary to cancer chemotherapy (principal); C83.18 Mantle cell lymphoma, lymph nodes of multiple sites
CPT/HCPCS: 36592; 80053; 83615; 83735; 84100; 84550; 85025

== ENCOUNTER 2018-04-14 00:17 | Day surgery (SDC) | payer OTHER ==
--- NOTE | 2018-04-14 12:34 | NUR ---
PT DISCHARGED @ 1210 IN STABLE CONDITION
[2018-04-14 14:09] LABS: BASOPHILS ABSOLUTE AUTO 0.04 K/mm3 (0.00-0.23); BASOPHILS PERCENT AUTO 1 % (0-2); EOSINOPHILS ABSOLUTE AUTO 0.42 K/mm3 (0.00-0.68); EOSINOPHILS PERCENT AUTO 10 % (0-6); Hematocrit 28.6 % (37.0-53.0); Hemoglobin 9.5 g/dL (13.5-17.5); IMMATURE GRAN ABSOLUTE AUTO 0.03 K/mm3 (0.00-0.10); IMMATURE GRAN PERCENT AUTO 1 % (0-1); LYMPHOCYTES ABSOLUTE AUTO 0.75 K/mm3 (0.84-5.20); LYMPHOCYTES PERCENT AUTO 19 % (21-46); MONOCYTES ABSOLUTE AUTO 0.84 K/mm3 (0.16-1.47); MONOCYTES PERCENT AUTO 21 % (4-13); Mean Corpuscular HGB 32.5 pg (26.0-34.0); Mean Corpuscular HGB Conc 33.2 g/dL (31.5-36.5); Mean Platelet Volume 10.1 fL (9.1-12.4); NEUTROPHILS ABSOLUTE AUTO 1.97 K/mm3 (1.96-9.15); NEUTROPHILS PERCENT AUTO 49 % (41-73); Platelet Count 200 K/mm3 (150-400); RDW Coefficient Variation 21.2 % (11.7-14.2); RDW Standard Deviation 65.6 fL (35.1-46.3); Red Blood Cell Count 2.92 M/mm3 (4.30-5.90); White Blood Cell Count 4.05 K/mm3 (4.00-11.30)
[2018-04-14 14:11] LABS: Mean Corpuscular Volume 98 fL (80-100)
[2018-04-14 14:31] LABS: Alanine Aminotransfer (ALT/SGP 18 U/L (12-78); Albumin, Blood 3.5 g/dL (3.4-5.0); Albumin/Globulin Ratio 1.2 (0.8-1.8); Alk Phos 72 U/L (50-136); Anion Gap 7 mmol/L (6-16); Aspartate Aminotrans (AST/SGOT 11 U/L (12-37); Bilirubin, Total 0.3 mg/dL (0.1-1.0); Blood Urea Nitrogen 17 mg/dL (8-24); Bun/Creatinine Ratio 20.3 (12.0-20.0); CO2, Blood 26 mmol/L (21-32); Calcium, Blood 8.3 mg/dL (8.5-10.1); Chloride, Blood 107 mmol/L (98-108); Creatinine, Blood 0.84 mg/dL (0.60-1.20); Globulin, Blood 2.8 g/dL (2.2-4.0); Glomerular Filtration Rate >60 (60-); Glucose, Blood 104 mg/dL (70-99); Phosphorus, Blood 4.1 mg/dL (2.5-4.9); Potassium, Blood 3.7 mmol/L (3.5-5.5); Sodium, Blood 140 mmol/L (136-145); Total Protein, Blood 6.3 g/dL (6.4-8.2); Uric Acid, Blood 4.9 mg/dL (3.5-7.2)
[2018-04-14 15:07] LABS: Lactate Dehydrogenase (Ld),Bld 207 U/L (100-240)
== END 2018-04-14 12:10 | disposition home or self-care (01) ==
LOC: ATC 00:17
PROVIDERS: Internal Medicine Hematology & Oncology
DX: C83.18 Mantle cell lymphoma, lymph nodes of multiple sites (principal); D70.1 Agranulocytosis secondary to cancer chemotherapy
CPT/HCPCS: 36592; 80053; 83615; 83735; 84100; 84550; 85025

== ENCOUNTER 2018-04-17 00:09 | Day surgery (SDC) | payer OTHER ==
[2018-04-17 11:42] LABS: Hematocrit 29.3 % (37.0-53.0); Hemoglobin 9.7 g/dL (13.5-17.5); Mean Corpuscular HGB Conc 33.1 g/dL (31.5-36.5); Mean Corpuscular Volume 100 fL (80-100); Mean Platelet Volume 9.1 fL (9.1-12.4); Platelet Count 249 K/mm3 (150-400); RDW Coefficient Variation 22.1 % (11.7-14.2); Red Blood Cell Count 2.94 M/mm3 (4.30-5.90); White Blood Cell Count 4.38 K/mm3 (4.00-11.30)
[2018-04-17 12:06] LABS: Alanine Aminotransfer (ALT/SGP 19 U/L (12-78); Albumin, Blood 3.5 g/dL (3.4-5.0); Albumin/Globulin Ratio 1.3 (0.8-1.8); Alk Phos 67 U/L (50-136); Anion Gap 6 mmol/L (6-16); Aspartate Aminotrans (AST/SGOT 12 U/L (12-37); Bilirubin, Total 0.3 mg/dL (0.1-1.0); Blood Urea Nitrogen 19 mg/dL (8-24); Bun/Creatinine Ratio 20.4 (12.0-20.0); CO2, Blood 28 mmol/L (21-32); Chloride, Blood 109 mmol/L (98-108); Creatinine, Blood 0.93 mg/dL (0.60-1.20); Globulin, Blood 2.7 g/dL (2.2-4.0); Glomerular Filtration Rate >60 (60-); Glucose, Blood 100 mg/dL (70-99); Magnesium, Blood 2.2 mg/dL (1.6-2.4); Phosphorus, Blood 4.4 mg/dL (2.5-4.9); Potassium, Blood 3.6 mmol/L (3.5-5.5); Sodium, Blood 143 mmol/L (136-145); Total Protein, Blood 6.2 g/dL (6.4-8.2); Uric Acid, Blood 4.9 mg/dL (3.5-7.2)
[2018-04-17 12:14] LABS: Lactate Dehydrogenase (Ld),Bld 205 U/L (100-240)
== END 2018-04-17 11:45 | disposition home or self-care (01) ==
LOC: ATC 00:09
PROVIDERS: Internal Medicine Hematology & Oncology
DX: D70.1 Agranulocytosis secondary to cancer chemotherapy (principal); C83.18 Mantle cell lymphoma, lymph nodes of multiple sites
CPT/HCPCS: 36592; 80053; 83615; 83735; 84100; 84550; 85007; 85027

== ENCOUNTER 2018-04-21 00:25 | Day surgery (SDC) | payer OTHER ==
[2018-04-21 15:02] LABS: BASOPHILS ABSOLUTE AUTO 0.07 K/mm3 (0.00-0.23); BASOPHILS PERCENT AUTO 2 % (0-2); EOSINOPHILS ABSOLUTE AUTO 0.52 K/mm3 (0.00-0.68); EOSINOPHILS PERCENT AUTO 13 % (0-6); Hematocrit 31.5 % (37.0-53.0); Hemoglobin 10.4 g/dL (13.5-17.5); IMMATURE GRAN ABSOLUTE AUTO 0.01 K/mm3 (0.00-0.10); IMMATURE GRAN PERCENT AUTO 0 % (0-1); LYMPHOCYTES ABSOLUTE AUTO 0.65 K/mm3 (0.84-5.20); LYMPHOCYTES PERCENT AUTO 17 % (21-46); MONOCYTES ABSOLUTE AUTO 0.56 K/mm3 (0.16-1.47); MONOCYTES PERCENT AUTO 14 % (4-13); Mean Corpuscular HGB 33.1 pg (26.0-34.0); Mean Corpuscular Volume 100 fL (80-100); Mean Platelet Volume 9.3 fL (9.1-12.4); NEUTROPHILS PERCENT AUTO 54 % (41-73); Platelet Count 227 K/mm3 (150-400); RDW Coefficient Variation 22.1 % (11.7-14.2); RDW Standard Deviation 77.5 fL (35.1-46.3); Red Blood Cell Count 3.14 M/mm3 (4.30-5.90); White Blood Cell Count 3.91 K/mm3 (4.00-11.30)
[2018-04-21 15:30] LABS: Alanine Aminotransfer (ALT/SGP 18 U/L (12-78); Albumin, Blood 3.6 g/dL (3.4-5.0); Albumin/Globulin Ratio 1.3 (0.8-1.8); Alk Phos 62 U/L (50-136); Anion Gap 6 mmol/L (6-16); Aspartate Aminotrans (AST/SGOT 9 U/L (12-37); Bilirubin, Total 0.3 mg/dL (0.1-1.0); Blood Urea Nitrogen 14 mg/dL (8-24); Bun/Creatinine Ratio 15.1 (12.0-20.0); CO2, Blood 28 mmol/L (21-32); Calcium, Blood 8.3 mg/dL (8.5-10.1); Chloride, Blood 107 mmol/L (98-108); Creatinine, Blood 0.93 mg/dL (0.60-1.20); Globulin, Blood 2.8 g/dL (2.2-4.0); Glomerular Filtration Rate >60 (60-); Glucose, Blood 91 mg/dL (70-99); Magnesium, Blood 2.5 mg/dL (1.6-2.4); Phosphorus, Blood 4.4 mg/dL (2.5-4.9); Potassium, Blood 3.9 mmol/L (3.5-5.5); Sodium, Blood 141 mmol/L (136-145); Total Protein, Blood 6.4 g/dL (6.4-8.2); Uric Acid, Blood 5.4 mg/dL (3.5-7.2)
[2018-04-21 15:43] LABS: Lactate Dehydrogenase (Ld),Bld 173 U/L (100-240)
== END 2018-04-21 14:33 | disposition home or self-care (01) ==
LOC: ATC 00:25
PROVIDERS: Internal Medicine Hematology & Oncology
DX: D70.1 Agranulocytosis secondary to cancer chemotherapy (principal); C83.18 Mantle cell lymphoma, lymph nodes of multiple sites
CPT/HCPCS: 36592; 80053; 83615; 83735; 84100; 84550; 85025

== ENCOUNTER 2018-04-24 00:16 | Day surgery (SDC) | payer OTHER ==
[2018-04-24 15:39] LABS: BASOPHILS ABSOLUTE AUTO 0.06 K/mm3 (0.00-0.23); BASOPHILS PERCENT AUTO 1 % (0-2); EOSINOPHILS PERCENT AUTO 21 % (0-6); Hematocrit 33.8 % (37.0-53.0); Hemoglobin 11.1 g/dL (13.5-17.5); IMMATURE GRAN ABSOLUTE AUTO 0.01 K/mm3 (0.00-0.10); IMMATURE GRAN PERCENT AUTO 0 % (0-1); LYMPHOCYTES ABSOLUTE AUTO 0.92 K/mm3 (0.84-5.20); LYMPHOCYTES PERCENT AUTO 21 % (21-46); MONOCYTES ABSOLUTE AUTO 0.64 K/mm3 (0.16-1.47); MONOCYTES PERCENT AUTO 15 % (4-13); Mean Corpuscular HGB 33.4 pg (26.0-34.0); Mean Corpuscular HGB Conc 32.8 g/dL (31.5-36.5); Mean Corpuscular Volume 102 fL (80-100); Mean Platelet Volume 9.7 fL (9.1-12.4); NEUTROPHILS ABSOLUTE AUTO 1.81 K/mm3 (1.96-9.15); NEUTROPHILS PERCENT AUTO 42 % (41-73); Platelet Count 209 K/mm3 (150-400); RDW Coefficient Variation 21.1 % (11.7-14.2); RDW Standard Deviation 76.2 fL (35.1-46.3); Red Blood Cell Count 3.32 M/mm3 (4.30-5.90); White Blood Cell Count 4.34 K/mm3 (4.00-11.30)
[2018-04-24 15:50] LABS: Alanine Aminotransfer (ALT/SGP 17 U/L (12-78); Albumin, Blood 3.8 g/dL (3.4-5.0); Albumin/Globulin Ratio 1.5 (0.8-1.8); Alk Phos 63 U/L (50-136); Anion Gap 7 mmol/L (6-16); Aspartate Aminotrans (AST/SGOT 7 U/L (12-37); Bilirubin, Total 0.2 mg/dL (0.1-1.0); Blood Urea Nitrogen 18 mg/dL (8-24); Bun/Creatinine Ratio 18.2 (12.0-20.0); CO2, Blood 27 mmol/L (21-32); Calcium, Blood 8.5 mg/dL (8.5-10.1); Chloride, Blood 110 mmol/L (98-108); Creatinine, Blood 0.99 mg/dL (0.60-1.20); Globulin, Blood 2.6 g/dL (2.2-4.0); Glomerular Filtration Rate >60 (60-); Glucose, Blood 93 mg/dL (70-99); Magnesium, Blood 2.3 mg/dL (1.6-2.4); Potassium, Blood 3.9 mmol/L (3.5-5.5); Sodium, Blood 144 mmol/L (136-145); Total Protein, Blood 6.4 g/dL (6.4-8.2)
[2018-04-24 15:52] LABS: Uric Acid, Blood 4.6 mg/dL (3.5-7.2)
[2018-04-24 16:33] LABS: Lactate Dehydrogenase (Ld),Bld 196 U/L (100-240)
== END 2018-04-24 15:02 | disposition home or self-care (01) ==
LOC: ATC 00:16
PROVIDERS: Internal Medicine Hematology & Oncology
DX: D70.1 Agranulocytosis secondary to cancer chemotherapy (principal); C83.18 Mantle cell lymphoma, lymph nodes of multiple sites
CPT/HCPCS: 36592; 80053; 83615; 83735; 84100; 84550; 85025

== ENCOUNTER 2018-04-28 00:08 | Day surgery (SDC) | payer OTHER ==
[2018-04-28 16:01] LABS: BASOPHILS ABSOLUTE AUTO 0.06 K/mm3 (0.00-0.23); BASOPHILS PERCENT AUTO 2 % (0-2); EOSINOPHILS ABSOLUTE AUTO 1.08 K/mm3 (0.00-0.68); EOSINOPHILS PERCENT AUTO 26 % (0-6); Hematocrit 36.1 % (37.0-53.0); Hemoglobin 12.1 g/dL (13.5-17.5); IMMATURE GRAN ABSOLUTE AUTO 0.01 K/mm3 (0.00-0.10); IMMATURE GRAN PERCENT AUTO 0 % (0-1); LYMPHOCYTES ABSOLUTE AUTO 0.81 K/mm3 (0.84-5.20); LYMPHOCYTES PERCENT AUTO 20 % (21-46); MONOCYTES ABSOLUTE AUTO 0.57 K/mm3 (0.16-1.47); MONOCYTES PERCENT AUTO 14 % (4-13); Mean Corpuscular HGB Conc 33.5 g/dL (31.5-36.5); Mean Corpuscular Volume 101 fL (80-100); Mean Platelet Volume 9.8 fL (9.1-12.4); NEUTROPHILS ABSOLUTE AUTO 1.56 K/mm3 (1.96-9.15); NEUTROPHILS PERCENT AUTO 38 % (41-73); Platelet Count 193 K/mm3 (150-400); RDW Coefficient Variation 19.3 % (11.7-14.2); Red Blood Cell Count 3.56 M/mm3 (4.30-5.90); White Blood Cell Count 4.09 K/mm3 (4.00-11.30)
[2018-04-28 16:33] LABS: Alanine Aminotransfer (ALT/SGP 20 U/L (12-78); Albumin, Blood 3.8 g/dL (3.4-5.0); Albumin/Globulin Ratio 1.4 (0.8-1.8); Alk Phos 56 U/L (50-136); Anion Gap 6 mmol/L (6-16); Aspartate Aminotrans (AST/SGOT 10 U/L (12-37); Bilirubin, Total 0.3 mg/dL (0.1-1.0); Blood Urea Nitrogen 21 mg/dL (8-24); Bun/Creatinine Ratio 23.2 (12.0-20.0); CO2, Blood 28 mmol/L (21-32); Calcium, Blood 8.8 mg/dL (8.5-10.1); Chloride, Blood 106 mmol/L (98-108); Creatinine, Blood 0.91 mg/dL (0.60-1.20); Globulin, Blood 2.7 g/dL (2.2-4.0); Glomerular Filtration Rate >60 (60-); Glucose, Blood 90 mg/dL (70-99); Phosphorus, Blood 4.3 mg/dL (2.5-4.9); Sodium, Blood 140 mmol/L (136-145); Total Protein, Blood 6.5 g/dL (6.4-8.2); Uric Acid, Blood 4.9 mg/dL (3.5-7.2)
[2018-04-28 17:27] LABS: Lactate Dehydrogenase (Ld),Bld 160 U/L (100-240)
== END 2018-04-28 22:43 | disposition home or self-care (01) ==
LOC: ATC 00:08
PROVIDERS: Internal Medicine Hematology & Oncology
DX: D70.1 Agranulocytosis secondary to cancer chemotherapy (principal); C83.18 Mantle cell lymphoma, lymph nodes of multiple sites
CPT/HCPCS: 36592; 80053; 83615; 83735; 84100; 84550; 85025

== ENCOUNTER 2018-05-01 00:25 | Day surgery (SDC) | payer OTHER ==
[2018-05-01 12:08] LABS: BASOPHILS ABSOLUTE AUTO 0.07 K/mm3 (0.00-0.23); BASOPHILS PERCENT AUTO 2 % (0-2); EOSINOPHILS ABSOLUTE AUTO 1.11 K/mm3 (0.00-0.68); EOSINOPHILS PERCENT AUTO 24 % (0-6); Hematocrit 36.5 % (37.0-53.0); Hemoglobin 12.2 g/dL (13.5-17.5); IMMATURE GRAN ABSOLUTE AUTO 0.01 K/mm3 (0.00-0.10); IMMATURE GRAN PERCENT AUTO 0 % (0-1); LYMPHOCYTES ABSOLUTE AUTO 1.01 K/mm3 (0.84-5.20); LYMPHOCYTES PERCENT AUTO 22 % (21-46); MONOCYTES ABSOLUTE AUTO 0.63 K/mm3 (0.16-1.47); MONOCYTES PERCENT AUTO 14 % (4-13); Mean Corpuscular HGB 33.9 pg (26.0-34.0); Mean Corpuscular HGB Conc 33.4 g/dL (31.5-36.5); Mean Corpuscular Volume 101 fL (80-100); Mean Platelet Volume 9.7 fL (9.1-12.4); NEUTROPHILS ABSOLUTE AUTO 1.73 K/mm3 (1.96-9.15); NEUTROPHILS PERCENT AUTO 38 % (41-73); Platelet Count 204 K/mm3 (150-400); RDW Coefficient Variation 17.8 % (11.7-14.2); RDW Standard Deviation 66.4 fL (35.1-46.3); White Blood Cell Count 4.56 K/mm3 (4.00-11.30)
[2018-05-01 12:21] LABS: Alanine Aminotransfer (ALT/SGP 20 U/L (12-78); Albumin, Blood 3.8 g/dL (3.4-5.0); Albumin/Globulin Ratio 1.3 (0.8-1.8); Alk Phos 55 U/L (50-136); Anion Gap 6 mmol/L (6-16); Aspartate Aminotrans (AST/SGOT 19 U/L (12-37); Bilirubin, Total 0.3 mg/dL (0.1-1.0); Blood Urea Nitrogen 24 mg/dL (8-24); Bun/Creatinine Ratio 23.8 (12.0-20.0); CO2, Blood 29 mmol/L (21-32); Calcium, Blood 8.8 mg/dL (8.5-10.1); Chloride, Blood 108 mmol/L (98-108); Creatinine, Blood 1.01 mg/dL (0.60-1.20); Globulin, Blood 2.9 g/dL (2.2-4.0); Glomerular Filtration Rate >60 (60-); Glucose, Blood 96 mg/dL (70-99); Magnesium, Blood 2.4 mg/dL (1.6-2.4); Phosphorus, Blood 4.4 mg/dL (2.5-4.9); Sodium, Blood 143 mmol/L (136-145); Total Protein, Blood 6.7 g/dL (6.4-8.2); Uric Acid, Blood 4.8 mg/dL (3.5-7.2)
[2018-05-01 12:28] LABS: Lactate Dehydrogenase (Ld),Bld 213 U/L (100-240)
== END 2018-05-01 11:29 | disposition home or self-care (01) ==
LOC: ATC 00:25
PROVIDERS: Internal Medicine Hematology & Oncology
DX: D70.1 Agranulocytosis secondary to cancer chemotherapy (principal); C83.18 Mantle cell lymphoma, lymph nodes of multiple sites
CPT/HCPCS: 36592; 80053; 83615; 83735; 84100; 84550; 85025

== ENCOUNTER 2018-05-05 00:05 | Day surgery (SDC) | payer OTHER ==
[2018-05-05 15:47] LABS: BASOPHILS ABSOLUTE AUTO 0.06 K/mm3 (0.00-0.23); BASOPHILS PERCENT AUTO 1 % (0-2); EOSINOPHILS ABSOLUTE AUTO 1.05 K/mm3 (0.00-0.68); EOSINOPHILS PERCENT AUTO 22 % (0-6); Hematocrit 38.6 % (37.0-53.0); Hemoglobin 13.1 g/dL (13.5-17.5); IMMATURE GRAN ABSOLUTE AUTO 0.01 K/mm3 (0.00-0.10); IMMATURE GRAN PERCENT AUTO 0 % (0-1); LYMPHOCYTES ABSOLUTE AUTO 0.84 K/mm3 (0.84-5.20); LYMPHOCYTES PERCENT AUTO 18 % (21-46); MONOCYTES ABSOLUTE AUTO 0.59 K/mm3 (0.16-1.47); MONOCYTES PERCENT AUTO 13 % (4-13); Mean Corpuscular HGB Conc 33.9 g/dL (31.5-36.5); Mean Corpuscular Volume 100 fL (80-100); Mean Platelet Volume 9.2 fL (9.1-12.4); NEUTROPHILS ABSOLUTE AUTO 2.17 K/mm3 (1.96-9.15); NEUTROPHILS PERCENT AUTO 46 % (41-73); Platelet Count 185 K/mm3 (150-400); RDW Coefficient Variation 16.3 % (11.7-14.2); RDW Standard Deviation 60.2 fL (35.1-46.3); Red Blood Cell Count 3.85 M/mm3 (4.30-5.90); White Blood Cell Count 4.72 K/mm3 (4.00-11.30)
[2018-05-05 16:03] LABS: Alanine Aminotransfer (ALT/SGP 30 U/L (12-78); Albumin, Blood 3.9 g/dL (3.4-5.0); Albumin/Globulin Ratio 1.4 (0.8-1.8); Alk Phos 61 U/L (50-136); Anion Gap 8 mmol/L (6-16); Aspartate Aminotrans (AST/SGOT 14 U/L (12-37); Bilirubin, Total 0.4 mg/dL (0.1-1.0); Blood Urea Nitrogen 17 mg/dL (8-24); Bun/Creatinine Ratio 15.9 (12.0-20.0); CO2, Blood 29 mmol/L (21-32); Calcium, Blood 8.7 mg/dL (8.5-10.1); Chloride, Blood 106 mmol/L (98-108); Creatinine, Blood 1.07 mg/dL (0.60-1.20); Globulin, Blood 2.8 g/dL (2.2-4.0); Glomerular Filtration Rate >60 (60-); Glucose, Blood 100 mg/dL (70-99); Magnesium, Blood 2.2 mg/dL (1.6-2.4); Phosphorus, Blood 4.5 mg/dL (2.5-4.9); Potassium, Blood 3.8 mmol/L (3.5-5.5); Sodium, Blood 143 mmol/L (136-145); Total Protein, Blood 6.7 g/dL (6.4-8.2); Uric Acid, Blood 4.7 mg/dL (3.5-7.2)
[2018-05-05 16:25] LABS: Lactate Dehydrogenase (Ld),Bld 190 U/L (100-240)
== END 2018-05-05 15:34 | disposition home or self-care (01) ==
LOC: ATC 00:05
PROVIDERS: Internal Medicine Hematology & Oncology
DX: C83.18 Mantle cell lymphoma, lymph nodes of multiple sites (principal); D70.1 Agranulocytosis secondary to cancer chemotherapy; Z45.2 Encounter for adjustment and management of vascular access device
CPT/HCPCS: 36592; 80053; 83615; 83735; 84100; 84550; 85025

== ENCOUNTER 2018-05-08 00:05 | Day surgery (SDC) | payer OTHER ==
[2018-05-08 12:20] LABS: BASOPHILS ABSOLUTE AUTO 0.07 K/mm3 (0.00-0.23); BASOPHILS PERCENT AUTO 1 % (0-2); EOSINOPHILS ABSOLUTE AUTO 1.41 K/mm3 (0.00-0.68); EOSINOPHILS PERCENT AUTO 28 % (0-6); Hematocrit 38.9 % (37.0-53.0); Hemoglobin 12.8 g/dL (13.5-17.5); IMMATURE GRAN ABSOLUTE AUTO 0.01 K/mm3 (0.00-0.10); IMMATURE GRAN PERCENT AUTO 0 % (0-1); LYMPHOCYTES ABSOLUTE AUTO 1.05 K/mm3 (0.84-5.20); LYMPHOCYTES PERCENT AUTO 21 % (21-46); MONOCYTES ABSOLUTE AUTO 0.75 K/mm3 (0.16-1.47); MONOCYTES PERCENT AUTO 15 % (4-13); Mean Corpuscular HGB 33.1 pg (26.0-34.0); Mean Corpuscular HGB Conc 32.9 g/dL (31.5-36.5); Mean Corpuscular Volume 101 fL (80-100); Mean Platelet Volume 9.7 fL (9.1-12.4); NEUTROPHILS ABSOLUTE AUTO 1.72 K/mm3 (1.96-9.15); NEUTROPHILS PERCENT AUTO 34 % (41-73); Platelet Count 176 K/mm3 (150-400); RDW Coefficient Variation 15.6 % (11.7-14.2); RDW Standard Deviation 58.4 fL (35.1-46.3); Red Blood Cell Count 3.87 M/mm3 (4.30-5.90); White Blood Cell Count 5.01 K/mm3 (4.00-11.30)
[2018-05-08 12:52] LABS: Alanine Aminotransfer (ALT/SGP 24 U/L (12-78); Albumin, Blood 3.9 g/dL (3.4-5.0); Albumin/Globulin Ratio 1.3 (0.8-1.8); Alk Phos 63 U/L (50-136); Anion Gap 6 mmol/L (6-16); Aspartate Aminotrans (AST/SGOT 16 U/L (12-37); Bilirubin, Total 0.2 mg/dL (0.1-1.0); Blood Urea Nitrogen 14 mg/dL (8-24); Bun/Creatinine Ratio 13.7 (12.0-20.0); CO2, Blood 27 mmol/L (21-32); Calcium, Blood 8.5 mg/dL (8.5-10.1); Chloride, Blood 107 mmol/L (98-108); Creatinine, Blood 1.02 mg/dL (0.60-1.20); Globulin, Blood 2.9 g/dL (2.2-4.0); Glomerular Filtration Rate >60 (60-); Glucose, Blood 97 mg/dL (70-99); Magnesium, Blood 2.4 mg/dL (1.6-2.4); Phosphorus, Blood 3.6 mg/dL (2.5-4.9); Sodium, Blood 140 mmol/L (136-145); Total Protein, Blood 6.8 g/dL (6.4-8.2); Uric Acid, Blood 4.3 mg/dL (3.5-7.2)
[2018-05-08 13:03] LABS: Lactate Dehydrogenase (Ld),Bld 183 U/L (100-240)
== END 2018-05-08 11:10 | disposition home or self-care (01) ==
LOC: ATC 00:05
PROVIDERS: Internal Medicine Hematology & Oncology
DX: C83.18 Mantle cell lymphoma, lymph nodes of multiple sites (principal); D70.1 Agranulocytosis secondary to cancer chemotherapy
CPT/HCPCS: 36592; 80053; 83615; 83735; 84100; 84550; 85025

== ENCOUNTER 2018-07-20 14:20 | Inpatient (IN) | payer OTHER ==
[~2018-07-20] VITALS: Ht 167.6 cm; Wt 67.6 kg
[2018-07-20 15:46] LABS: BASOPHILS ABSOLUTE AUTO 0.04 K/mm3 (0.00-0.23); BASOPHILS PERCENT AUTO 1 % (0-2); EOSINOPHILS ABSOLUTE AUTO 0.23 K/mm3 (0.00-0.68); EOSINOPHILS PERCENT AUTO 3 % (0-6); Hematocrit 35.8 % (37.0-53.0); Hemoglobin 12.2 g/dL (13.5-17.5); IMMATURE GRAN ABSOLUTE AUTO 0.03 K/mm3 (0.00-0.10); IMMATURE GRAN PERCENT AUTO 0 % (0-1); LYMPHOCYTES ABSOLUTE AUTO 1.18 K/mm3 (0.84-5.20); LYMPHOCYTES PERCENT AUTO 15 % (21-46); MONOCYTES PERCENT AUTO 9 % (4-13); Mean Corpuscular HGB 33.9 pg (26.0-34.0); Mean Corpuscular HGB Conc 34.1 g/dL (31.5-36.5); Mean Corpuscular Volume 99 fL (80-100); Mean Platelet Volume 9.2 fL (9.1-12.4); NEUTROPHILS ABSOLUTE AUTO 5.67 K/mm3 (1.96-9.15); NEUTROPHILS PERCENT AUTO 72 % (41-73); Platelet Count 143 K/mm3 (150-400); RDW Coefficient Variation 18.3 % (11.7-14.2); RDW Standard Deviation 66.9 fL (35.1-46.3); White Blood Cell Count 7.85 K/mm3 (4.00-11.30)
[2018-07-20] MEDS ORDERED: Acyclovir400 MG PO (15:46)
[2018-07-20] MEDS ORDERED: Bactrim Ds Tab1 EACH PO (15:47)
[2018-07-20 16:12] LABS: Alanine Aminotransfer (ALT/SGP 16 U/L (12-78); Albumin, Blood 3.4 g/dL (3.4-5.0); Albumin/Globulin Ratio 1.4 (0.8-1.8); Alk Phos 49 U/L (50-136); Anion Gap 3 mmol/L (6-16); Aspartate Aminotrans (AST/SGOT 11 U/L (12-37); Bilirubin, Total 0.3 mg/dL (0.1-1.0); Blood Urea Nitrogen 14 mg/dL (8-24); Bun/Creatinine Ratio 14.5 (12.0-20.0); CO2, Blood 30 mmol/L (21-32); Calcium, Blood 8.5 mg/dL (8.5-10.1); Chloride, Blood 104 mmol/L (98-108); Creatinine, Blood 0.97 mg/dL (0.60-1.20); Globulin, Blood 2.4 g/dL (2.2-4.0); Glomerular Filtration Rate >60 (60-); Glucose, Blood 95 mg/dL (70-99); Potassium, Blood 4.3 mmol/L (3.5-5.5); Sodium, Blood 137 mmol/L (136-145); Total Protein, Blood 5.8 g/dL (6.4-8.2)
[2018-07-20] MEDS ORDERED: PROC5 PO (17:53)
[2018-07-20] MEDS ORDERED: ZOLP10 PO (17:53)
[2018-07-20] MEDS ORDERED: BENADRYL25 MG PO (17:54)
[2018-07-20 19:09] LABS: Source, Urine Clean Catch
[2018-07-20 19:15] LABS: Appearance, Urine Clear (Clear); Bilirubin, Urine Neg (Neg); Blood, Urine Neg (Neg); Color, Urine Yellow (P-Yellow); Glucose Qualitative, Urine Neg (Neg); Ketones, Urine Neg (Neg); Leukocyte Esterase, Urine Neg (Neg); Nitrite, Urine Neg (Neg); Protein, Urine Neg (Neg); Specific Gravity, Urine 1.015 (1.003-1.022); Urobilinogen, Urine NORM (Normal)
[2018-07-20] MEDS ORDERED: THERA1 EACH PO (20:04)
--- NOTE | 2018-07-20 23:02 | NUR ---
DR. GR CALLED FOR PT'S HOME MED REC; HE IS COMPLETING A YEAR LONG COURSE OF ACYCLOVIR AND A 6 MONTH COURSE OF BACTRIM AT HOME. ORDERS TO CONTINUE THE ACYCLOVIR BUT HOLD THE BACTRIM. DR. GR HAS CONSULTED W/ DR. RILEY AND IS COMFORTABLE WITH THE IV ANTIBIOTICS THE PATIENT WILL BE RECEIVING.
--- NOTE | 2018-07-21 05:22 | NUR ---
SHIFT SUMMARY PT IS A NEW ADMIT FROM ED THIS SHIFT WITH ACUTE CHOLECYSTITIS DX. PT DENIED PAIN OR NAUSEA THIS SHIFT. VSS, 02 SATS >90% ON RA, NO COMPLAINTS OF SOB. PT IS INDEPENDENT IN ROOM, SBA NEEDED, VOIDING INDEPENDENTLY. PT TOLERATING REGULAR DIET, MADE NPO AT MIDNIGHT. 18G IV PLACED PER SURGICAL PROTOCOL. WILL CONTINUE TO MONITOR.
--- NOTE | 2018-07-21 09:45 | NUR ---
Ambulatory in Day Surgery. Surgical site prepped with 2% Chlorhexidine cloth wipe. History, Chart, Medications and Allergies reviewed before start of procedure. Lungs clear T/O to Auscultation. Patient confirms NPO status and agrees with scheduled surgery. Pre-Op teaching done. Pt verbalizes understanding.
--- NOTE | 2018-07-21 13:28 | NUR ---
07/21/18 1328 Magali Veloz EDIT CHART PER BRENDA DIALLO.
--- NOTE | 2018-07-21 17:18 | NUR ---
SHIFT SUMMARY PT HAD LAP MARIA VICTORIA TODAY. HAS DONE WELL POST OP. TOLERATING CLEAR LQS, AMBULATING, VOIDING. DENIES PAIN OR NAUSEA THIS AFTERNOON.
[2018-07-21 20:58] LABS: BASOPHILS ABSOLUTE AUTO 0.01 K/mm3 (0.00-0.23); BASOPHILS PERCENT AUTO 0 % (0-2); EOSINOPHILS PERCENT AUTO 0 % (0-6); Hematocrit 36.5 % (37.0-53.0); Hemoglobin 12.4 g/dL (13.5-17.5); IMMATURE GRAN ABSOLUTE AUTO 0.03 K/mm3 (0.00-0.10); IMMATURE GRAN PERCENT AUTO 0 % (0-1); LYMPHOCYTES ABSOLUTE AUTO 0.73 K/mm3 (0.84-5.20); LYMPHOCYTES PERCENT AUTO 9 % (21-46); MONOCYTES ABSOLUTE AUTO 0.36 K/mm3 (0.16-1.47); MONOCYTES PERCENT AUTO 4 % (4-13); Mean Corpuscular HGB 33.5 pg (26.0-34.0); Mean Corpuscular Volume 99 fL (80-100); Mean Platelet Volume 9.1 fL (9.1-12.4); NEUTROPHILS ABSOLUTE AUTO 6.96 K/mm3 (1.96-9.15); NEUTROPHILS PERCENT AUTO 86 % (41-73); Platelet Count 132 K/mm3 (150-400); RDW Standard Deviation 65.1 fL (35.1-46.3); White Blood Cell Count 8.09 K/mm3 (4.00-11.30)
--- NOTE | 2018-07-22 00:05 | NUR ---
NOTIFIED UPDATED ON PT'S CONDITION AND NOTIFIED OF CURRENT VITAL SIGNS. NO NEW ORDERS AT THIS TIME.
[2018-07-22 05:47] LABS: BASOPHILS ABSOLUTE AUTO 0.02 K/mm3 (0.00-0.23); BASOPHILS PERCENT AUTO 0 % (0-2); EOSINOPHILS ABSOLUTE AUTO 0.01 K/mm3 (0.00-0.68); EOSINOPHILS PERCENT AUTO 0 % (0-6); Hematocrit 31.3 % (37.0-53.0); Hemoglobin 10.8 g/dL (13.5-17.5); IMMATURE GRAN ABSOLUTE AUTO 0.02 K/mm3 (0.00-0.10); IMMATURE GRAN PERCENT AUTO 0 % (0-1); LYMPHOCYTES ABSOLUTE AUTO 1.08 K/mm3 (0.84-5.20); LYMPHOCYTES PERCENT AUTO 14 % (21-46); MONOCYTES ABSOLUTE AUTO 0.83 K/mm3 (0.16-1.47); MONOCYTES PERCENT AUTO 11 % (4-13); Mean Corpuscular HGB 33.6 pg (26.0-34.0); Mean Corpuscular HGB Conc 34.5 g/dL (31.5-36.5); Mean Corpuscular Volume 98 fL (80-100); Mean Platelet Volume 9.5 fL (9.1-12.4); NEUTROPHILS ABSOLUTE AUTO 5.61 K/mm3 (1.96-9.15); NEUTROPHILS PERCENT AUTO 74 % (41-73); Platelet Count 141 K/mm3 (150-400); RDW Coefficient Variation 18.5 % (11.7-14.2); RDW Standard Deviation 65.1 fL (35.1-46.3); Red Blood Cell Count 3.21 M/mm3 (4.30-5.90); White Blood Cell Count 7.57 K/mm3 (4.00-11.30)
--- NOTE | 2018-07-22 07:23 | NUR ---
SUMMARY POD #1 LAP MARIA VICTORIA DRSG'S REMAIN C/D/I, PT IS PASSING FLATUS AND WAS ABLE TO HAVE A LARGE BM. VOIDING WNL. MILD NAUSEA, TOLERATING SM SIPS OF CLEAR FLUIDS. ELEVATED BP & HR NOTED. AWARE, PT ASYMPTOMATIC. I/S USE ENCOURAGED. FLUID BOLUS WAS GIVEN PER ORDERS. LR INFUSING @ 125 ML/HR. REPORT GIVEN TO DAY RN. CALL LIGHT IN REACH
[2018-07-22 14:57] LABS: BASOPHILS ABSOLUTE AUTO 0.03 K/mm3 (0.00-0.23); BASOPHILS PERCENT AUTO 0 % (0-2); EOSINOPHILS ABSOLUTE AUTO 0.03 K/mm3 (0.00-0.68); EOSINOPHILS PERCENT AUTO 0 % (0-6); Hematocrit 34.6 % (37.0-53.0); Hemoglobin 11.7 g/dL (13.5-17.5); IMMATURE GRAN ABSOLUTE AUTO 0.03 K/mm3 (0.00-0.10); IMMATURE GRAN PERCENT AUTO 0 % (0-1); LYMPHOCYTES ABSOLUTE AUTO 0.86 K/mm3 (0.84-5.20); LYMPHOCYTES PERCENT AUTO 10 % (21-46); MONOCYTES ABSOLUTE AUTO 0.63 K/mm3 (0.16-1.47); MONOCYTES PERCENT AUTO 7 % (4-13); Mean Corpuscular HGB 33.5 pg (26.0-34.0); Mean Corpuscular HGB Conc 33.8 g/dL (31.5-36.5); Mean Corpuscular Volume 99 fL (80-100); Mean Platelet Volume 9.5 fL (9.1-12.4); NEUTROPHILS ABSOLUTE AUTO 7.45 K/mm3 (1.96-9.15); NEUTROPHILS PERCENT AUTO 83 % (41-73); Platelet Count 137 K/mm3 (150-400); RDW Coefficient Variation 18.5 % (11.7-14.2); RDW Standard Deviation 67.1 fL (35.1-46.3); Red Blood Cell Count 3.49 M/mm3 (4.30-5.90); White Blood Cell Count 9.03 K/mm3 (4.00-11.30)
--- NOTE | 2018-07-22 18:44 | NUR ---
SHIFT SUMMARY PT CONTINUES TO BE TACHY TODAY DESPITE MEDS. STRUGGLED WITH POOR APPETITE AND NAUSEA, NO EMESIS. AMBULATED. SEVERAL LOOSE BMS. VOIDING WELL.
--- NOTE | 2018-07-23 04:28 | NUR ---
PT HR CONTINUES TO AVERAGE ABOUT 110 PER BLENDING OPERATOR DISPITE Q4 HR LABATALOL TONIGHT. DR. SCHAFER MADE AWARE OF THIS AT 0425. NO NEW ORDERS AT THIS TIME. ALL OTHER VSS AND PT DENIES DIZZINESS, HEADACHE. WILL CTM
[2018-07-23 05:04] LABS: BASOPHILS ABSOLUTE AUTO 0.03 K/mm3 (0.00-0.23); BASOPHILS PERCENT AUTO 1 % (0-2); EOSINOPHILS ABSOLUTE AUTO 0.08 K/mm3 (0.00-0.68); EOSINOPHILS PERCENT AUTO 1 % (0-6); Hematocrit 31.7 % (37.0-53.0); Hemoglobin 10.8 g/dL (13.5-17.5); IMMATURE GRAN ABSOLUTE AUTO 0.02 K/mm3 (0.00-0.10); IMMATURE GRAN PERCENT AUTO 0 % (0-1); LYMPHOCYTES ABSOLUTE AUTO 0.93 K/mm3 (0.84-5.20); LYMPHOCYTES PERCENT AUTO 14 % (21-46); MONOCYTES ABSOLUTE AUTO 0.61 K/mm3 (0.16-1.47); MONOCYTES PERCENT AUTO 9 % (4-13); Mean Corpuscular HGB 33.2 pg (26.0-34.0); Mean Corpuscular HGB Conc 34.1 g/dL (31.5-36.5); Mean Corpuscular Volume 98 fL (80-100); Mean Platelet Volume 9.6 fL (9.1-12.4); NEUTROPHILS PERCENT AUTO 74 % (41-73); Platelet Count 126 K/mm3 (150-400); RDW Coefficient Variation 17.9 % (11.7-14.2); RDW Standard Deviation 64.3 fL (35.1-46.3); Red Blood Cell Count 3.25 M/mm3 (4.30-5.90); White Blood Cell Count 6.47 K/mm3 (4.00-11.30)
--- NOTE | 2018-07-23 07:26 | NUR ---
SUMMARY: SEE PREVIOUS NOTE. HR CONTINUES IN 100-115'S. BP AND ALL OTHER VS STABLE. PT DENIES ANY CHEST PAIN, SOB. PT GIVEN ZOFRAN TONIGHT, NO EMESIS, ABLE TO TOLERATE A SMALL AMOUNT OF SOUP FOR DINNER. SURGICAL SITE WNL. GIVEN 5MG MORPHINE X1 FOR PAIN, OTHERWISE PT DENIED PAIN. PLAN IS TO RE-EVALUATED BP MEDS WITH DR. SCHAFER AND POSSIBLY MAKE ADJUSTMENTS. WILL CTM AND REPORT TO DAY RN.
[2018-07-23 12:04] LABS: Troponin I <0.015 ng/mL (0.000-0.040)
[2018-07-23 12:05] LABS: Thyroid Stimulating Hormone 0.988 uIU/mL (0.360-4.800)
--- NOTE | 2018-07-23 13:41 | NUR ---
Echocardiogram completed.
--- NOTE | 2018-07-23 17:10 | NUR ---
SUMMARY PATIENT HAS DENIED NEED FOR PAIN MEDS THIS SHIFT. PATIENT HAS VERY POOR APPETITE -FAMILY BROUGHT IN SMOOTHIE DRINKS FOR PATIENT. PATIENT UP IN ROOM AND STEADY ON FEET.
[2018-07-24 05:14] LABS: BASOPHILS ABSOLUTE AUTO 0.04 K/mm3 (0.00-0.23); BASOPHILS PERCENT AUTO 1 % (0-2); EOSINOPHILS ABSOLUTE AUTO 0.24 K/mm3 (0.00-0.68); EOSINOPHILS PERCENT AUTO 4 % (0-6); Hemoglobin 11.4 g/dL (13.5-17.5); IMMATURE GRAN ABSOLUTE AUTO 0.02 K/mm3 (0.00-0.10); IMMATURE GRAN PERCENT AUTO 0 % (0-1); LYMPHOCYTES ABSOLUTE AUTO 0.98 K/mm3 (0.84-5.20); LYMPHOCYTES PERCENT AUTO 15 % (21-46); MONOCYTES ABSOLUTE AUTO 0.78 K/mm3 (0.16-1.47); MONOCYTES PERCENT AUTO 12 % (4-13); Mean Corpuscular HGB 33.2 pg (26.0-34.0); Mean Corpuscular HGB Conc 34.5 g/dL (31.5-36.5); Mean Corpuscular Volume 96 fL (80-100); NEUTROPHILS ABSOLUTE AUTO 4.42 K/mm3 (1.96-9.15); NEUTROPHILS PERCENT AUTO 68 % (41-73); Platelet Count 135 K/mm3 (150-400); RDW Coefficient Variation 17.7 % (11.7-14.2); RDW Standard Deviation 61.5 fL (35.1-46.3); Red Blood Cell Count 3.43 M/mm3 (4.30-5.90); White Blood Cell Count 6.48 K/mm3 (4.00-11.30)
[2018-07-24 05:43] LABS: Alanine Aminotransfer (ALT/SGP 33 U/L (12-78); Albumin, Blood 3.4 g/dL (3.4-5.0); Albumin/Globulin Ratio 1.4 (0.8-1.8); Alk Phos 47 U/L (50-136); Anion Gap 6 mmol/L (6-16); Aspartate Aminotrans (AST/SGOT 14 U/L (12-37); Bilirubin, Total 0.6 mg/dL (0.1-1.0); Blood Urea Nitrogen 9 mg/dL (8-24); Bun/Creatinine Ratio 11.6 (12.0-20.0); CO2, Blood 28 mmol/L (21-32); Calcium, Blood 8.7 mg/dL (8.5-10.1); Chloride, Blood 106 mmol/L (98-108); Creatinine, Blood 0.78 mg/dL (0.60-1.20); Globulin, Blood 2.5 g/dL (2.2-4.0); Glomerular Filtration Rate >60 (60-); Glucose, Blood 89 mg/dL (70-99); Potassium, Blood 3.4 mmol/L (3.5-5.5); Sodium, Blood 140 mmol/L (136-145); Total Protein, Blood 5.9 g/dL (6.4-8.2); Troponin I <0.015 ng/mL (0.000-0.040)
--- NOTE | 2018-07-24 06:43 | NUR ---
LYING IN SEMI FOWLERS WITYH EYES CLOSED. HAS HAD A GOOD NIGHT, NO C/O PAIN OR PAIN MED REQUESTS OTHER THAN A DESAI. RESTED WITH EASE. HAS BEEN PLEASANT, AND COOPERATIVE WITH ALL COMMANDS AND REQUESTS. DENIES FURTHER NEEDS AT THIS TIME. SAFETY MEAURES IN PLACE. WILL GIVE HAND OFF TO ONCOMING SHIFT USING SBAR.
[2018-07-24] MEDS ORDERED: ACET325 PO (13:48)
[2018-07-24] MEDS ORDERED: LEVO750 PO (13:55)
[2018-07-24] MEDS ORDERED: DILT30 PO (13:59)
[2018-07-24] MEDS ORDERED: ONDA4ODT MM (14:01)
[2018-07-24] MEDS ORDERED: Norco 5-325 Ta1 EACH PO (14:01)
[2018-07-24] MEDS ORDERED: METO25 PO (14:01)
--- NOTE | 2018-07-24 15:24 | NUR ---
DISCHARGE PT HAS DONE WELL. TOLERATING DIET, VSS, PAIN WELL CONTROLLED, VOIDING WELL. [facility]. HARD SCRIPT GIVEN. PARENTS AT SIDE PT CHOOSES TO AMBULATE OUT.
== END 2018-07-24 15:25 | disposition home or self-care (01) | DRG 908 ==
LOC: ER 14:20 → SURS 17:35
PROVIDERS: Family Medicine; Physician Assistant; Surgery; ADMIT Surgery
PROC: BF131ZZ Fluoroscopy of Gallbladder and Bile Ducts using Low Osmolar Contrast (ICD-10-PCS; 2018-07-21)
PROC: 0FT44ZZ Resection of Gallbladder, Percutaneous Endoscopic Approach (ICD-10-PCS; principal; 2018-07-21 10:15)
DX: T86.5 Complications of stem cell transplant (principal); K80.00 Calculus of gallbladder with acute cholecystitis without obstruction; C83.10 Mantle cell lymphoma, unspecified site; K21.9 Gastro-esophageal reflux disease without esophagitis; Z79.82 Long term (current) use of aspirin; R00.0 Tachycardia, unspecified; I10 Essential (primary) hypertension; I25.2 Old myocardial infarction
CPT/HCPCS: 36415; 71046; 74177; 74300; 76705; 80053; 81003; 83690; 84443; 84484; 85025; 88304; 93005; 93010; 93306; 96361; 96365-59; 96375; 99285-25; A9270-GY; C1729; J0692; J1100; J1170; J1650; J1885; J2250; J2270; J2405; J2543; J2704; J3010; J7030; J7120; Q9967

== ENCOUNTER → 2018-12-29 | Outpatient (CLI) | payer OTHER ==
[~2018-12-29] MED LIST changes: +Acyclovir400 MG PO; +BENADRYL25 MG PO; +Bactrim Ds Tab1 EACH PO; +DILT30 PO; +LEVO750 PO; +Norco 5-325 Ta1 EACH PO; +ONDA4ODT MM; +THERA1 EACH PO
[2018-12-29 20:29] LABS: BASOPHILS ABSOLUTE AUTO 0.03 K/mm3 (0.00-0.23); BASOPHILS PERCENT AUTO 1 % (0-2); EOSINOPHILS ABSOLUTE AUTO 0.54 K/mm3 (0.00-0.68); EOSINOPHILS PERCENT AUTO 17 % (0-6); Hematocrit 40.8 % (37.0-53.0); Hemoglobin 13.4 g/dL (13.5-17.5); IMMATURE GRAN ABSOLUTE AUTO 0.19 K/mm3 (0.00-0.10); IMMATURE GRAN PERCENT AUTO 6 % (0-1); LYMPHOCYTES ABSOLUTE AUTO 1.07 K/mm3 (0.84-5.20); LYMPHOCYTES PERCENT AUTO 33 % (21-46); MONOCYTES ABSOLUTE AUTO 0.53 K/mm3 (0.16-1.47); MONOCYTES PERCENT AUTO 16 % (4-13); Mean Corpuscular HGB 35.1 pg (26.0-34.0); Mean Corpuscular HGB Conc 32.8 g/dL (31.5-36.5); Mean Platelet Volume 9.7 fL (9.1-12.4); NEUTROPHILS ABSOLUTE AUTO 0.87 K/mm3 (1.96-9.15); NEUTROPHILS PERCENT AUTO 27 % (41-73); Platelet Count 230 K/mm3 (150-400); RDW Coefficient Variation 15.1 % (11.7-14.2); RDW Standard Deviation 58.6 fL (35.1-46.3); Red Blood Cell Count 3.82 M/mm3 (4.30-5.90); White Blood Cell Count 3.23 K/mm3 (4.00-11.30)
[2018-12-29 20:31] LABS: Mean Corpuscular Volume 107 fL (80-100)
[2018-12-29 20:51] LABS: BASOPHILS ABSOLUTE MAN 0.03 K/mm3 (0.00-0.23); BASOPHILS PERCENT MAN 1 % (0-2); EOSINOPHILS ABSOLUTE MAN 0.38 K/mm3 (0.00-0.68); EOSINOPHILS PERCENT MAN 12 % (0-6); LYMPHOCYTES ABSOLUTE MAN 1.29 K/mm3 (0.84-5.20); LYMPHOCYTES PERCENT MAN 40 % (21-46); METAMYELOCYTE ABSOLUTE MAN 0.03 K/mm3 (0.00-0.00); METAMYELOCYTE PERCENT MAN 1 % (0-0); MONOCYTES ABSOLUTE MAN 0.45 K/mm3 (0.16-1.47); MONOCYTES PERCENT MAN 14 % (4-13); NEUTROPHILS ABSOLUTE MAN 1.03 K/mm3 (1.96-9.15); SEG NEUTROPHILS PERCENT MAN 32 % (41-73); TOTAL CELLS COUNTED 100
[2018-12-29 20:55] LABS: Alanine Aminotransfer (ALT/SGP 30 U/L (12-78); Albumin, Blood 4.1 g/dL (3.4-5.0); Albumin/Globulin Ratio 1.5 (0.8-1.8); Alk Phos 60 U/L (50-136); Anion Gap 4 mmol/L (6-16); Aspartate Aminotrans (AST/SGOT 15 U/L (12-37); Bilirubin, Total 0.5 mg/dL (0.1-1.0); Blood Urea Nitrogen 19 mg/dL (8-24); Bun/Creatinine Ratio 18.8 (12.0-20.0); CO2, Blood 28 mmol/L (21-32); Calcium, Blood 9.4 mg/dL (8.5-10.1); Chloride, Blood 107 mmol/L (98-108); Creatinine, Blood 1.01 mg/dL (0.60-1.20); Globulin, Blood 2.8 g/dL (2.2-4.0); Glomerular Filtration Rate >60 (60-); Glucose, Blood 95 mg/dL (70-99); Lactate Dehydrogenase (Ld),Bld 382 U/L (100-240); Potassium, Blood 4.5 mmol/L (3.5-5.5); Sodium, Blood 139 mmol/L (136-145); Total Protein, Blood 6.9 g/dL (6.4-8.2)
== END | disposition home or self-care (01) ==
LOC: LAB SHORT 20:04 → LAB 20:04
PROVIDERS: Internal Medicine Hematology & Oncology
DX: C83.00 Small cell B-cell lymphoma, unspecified site (principal)
CPT/HCPCS: 80053; 83615; 85025